=== PATIENT | female | born 1995 | race Asian ===

== ENCOUNTER 2017-10-10 01:52 | Inpatient (IN) | payer OTHER ==
[2017-10-10] VITALS (11 sets, daily range): BP systolic 100–131; BP diastolic 59–85; PULSE 93–106; TEMP 36.7–37.5; O2SAT 96–100; Ht 162.6 cm; Wt 59.1 kg
[~2017-10-10] VITALS: Ht 162.6 cm; Wt 59.1 kg
[~2017-10-10 01:52] MED LIST: [UNRECOGNIZED DRUG - REMARK] PO
[2017-10-10] MEDS ORDERED: KETOROLAC TROMETHAMINE 30 MG/ML VIAL IV STA (02:53)
[2017-10-10 03:22] LABS: ALT/SGPT 22 U/L (12-78); AST/SGOT 17 U/L (15-37); BLOOD UREA NITROGEN 7 mg/dl (7-18); BUN/CREATININE RATIO 12.5 (10-20); CALCIUM 8.3 mg/dl (8.5-10.1); CARBON DIOXIDE 27 mmol/L (21-32); CHLORIDE 103 mmol/L (98-107); CREATININE 0.59 mg/dl (0.60-1.20); GLUCOSE 101 mg/dl (70-99); POTASSIUM 3.4 mmol/L (3.5-5.1); SODIUM 134 mmol/L (136-145)
[2017-10-10 03:24] LABS: ALKALINE PHOSPHATASE 56 U/L (45-117)
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
[2017-10-10 03:35] LABS: COMPLETE YES; HEMATOCRIT 20.7 % (37-47); LYMPH ABS # 0.64 K/uL (1.2-3.4); MEAN CELL VOLUME 93.2 fL (80-100); MEAN CORPUSCULAR HEMOGLOBIN 33.3 pg (25-34); MEAN CORPUSCULAR HGB CONC 35.7 g/dl (32-36); MONO % 1.2 %; NEUT % 20.8 %; PLATELET COUNT 27 K/uL (130-400); PLT ESTIMATE SIGNIFIC DECREASED; RED BLOOD COUNT 2.22 M/uL (4.2-5.4); SCHISTOCYTES OCCASIONAL; TEAR DROP CELLS 1+; WHITE BLOOD COUNT 0.82 K/uL (4.8-10.8)
[2017-10-10 03:51] LABS: ACETAMINOPHEN < 2 ug/ml (10-30)
[2017-10-10 04:24] LABS: URINE APPEARANCE CLEAR (CLEAR); URINE BILIRUBIN NEG (NEG); URINE COLOR ORANGE; URINE NITRITE NEG (NEG); URINE PH 7.5 (4.5-7.5); URINE SPECIFIC GRAVITY 1.007 (1.000-1.030); UROBILINOGEN POS (NEG)
[2017-10-10 04:30] LABS: MANUAL MICROSCOPIC REQUIRED? NO; REVIEW REQ? NO
[2017-10-10 04:43] LABS: BENZODIAZEPINE, URINE NEG (NEG); COCAINE,URINE NEG (NEG); PHENCYCLIDINE, URINE NEG (NEG)
[2017-10-10] MEDS ORDERED: ALUMINUM/MAGNESIUM/SIMETH (MAALOX MAX) 30 ML UDC PO PRN (04:45)
[2017-10-10] MEDS ORDERED: ONDANSETRON INJ 2 MG/ML 2 ML VIAL IV PRN (04:45)
[2017-10-10] MEDS ORDERED: MAGNESIUM HYDROXIDE SUSP 30 ML UDC PO PRN (04:45)
[2017-10-10] MEDS ORDERED: POLYETHYLENE (MIRALAX) 17 GM PACK PO PRN (04:45)
[2017-10-10] MEDS ORDERED: ACETAMINOPHEN 325 MG TAB PO PRN (04:45)
[2017-10-10] MEDS ORDERED: SODIUM CHLORIDE 0.9% 1000ML 1,000 ML IV STA (04:53)
[2017-10-10] MEDS ORDERED: SODIUM CHLORIDE 0.9% 500ML 500 ML IV ONE (05:00)
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
--- NOTE | 2017-10-10 06:59 | DIAGNOSTIC IMAGING REPORT ---
CHEST ONE VIEW PORTABLE CLINICAL HISTORY: 22 years-old Female presenting with inhalant abuse. TECHNIQUE: Portable upright AP view of the chest was obtained. COMPARISON: None. FINDINGS: Cardiomediastinal silhouette normal. Lungs and pleural spaces clear. Osseous structures normal. Upper abdomen normal. IMPRESSION: 1. No acute cardiopulmonary disease. Electronically signed by: Lee Oh M.D. 10/10/2017 6:58 AM Dictated Date/Time: 10/10/2017 6:57 AM
[2017-10-10] MEDS ORDERED: NSS + 20MEQ KCL 1000ML 1,000 ML IV SCH (08:00)
[2017-10-10 08:55] LABS: FERRITIN 349.8 ng/ml (8.0-388.0)
[2017-10-10 09:22] LABS: MEAN CELL VOLUME 94.1 fL (80-100); MEAN CORPUSCULAR HEMOGLOBIN 33.2 pg (25-34); MEAN CORPUSCULAR HGB CONC 35.3 g/dl (32-36); PLATELET COUNT 19 K/uL (130-400); RED BLOOD COUNT 2.02 M/uL (4.2-5.4); WHITE BLOOD COUNT 0.93 K/uL (4.8-10.8)
[2017-10-10 09:25] LABS: PLT ESTIMATE SIGNIFIC DECREASED
[2017-10-10] MEDS: CYANOCOBALAMIN 1000 MCG/ML VIAL IM SCH (11:26)
[2017-10-10 14:25] LABS: PLATELET COUNT 15 K/uL (130-400)
[2017-10-10 14:27] LABS: BLOOD UREA NITROGEN 6 mg/dl (7-18); BUN/CREATININE RATIO 13.7 (10-20); CALCIUM 7.9 mg/dl (8.5-10.1); CARBON DIOXIDE 26 mmol/L (21-32); CHLORIDE 106 mmol/L (98-107); CREATININE 0.46 mg/dl (0.60-1.20); GLUCOSE 92 mg/dl (70-99); POTASSIUM 3.2 mmol/L (3.5-5.1); SODIUM 136 mmol/L (136-145)
--- NOTE | 2017-10-10 14:41 | Family Medicine Progress Note ---
Progress Note Date of Service Oct 10, 2017. Subjective Pt evaluation today including: conversation w/ patient, physical exam, chart review, lab review, review of studies Pain: No pain reported this morning Voiding: no voiding problems, no incontinence Patient is resting comfortably in bed this morning with no acute complaints. She states she has been having persistent numbness and tingling in her hands and feet since yesterday. She states that she initially started huffing 2 years ago for approximately 2 months, and then quit and year of the half ago when she has since restarted in doing it daily. She says she huffs around 200 canisters per day. She denies any shortness of breath at this time. She denies any confusion or difficulty concentrating. She denies any recent seizures or headaches. 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 She has had no issues with sleep. Constitutional: No fever, No chills, No sweats, No fatigue Respiratory: No cough, No sputum, No wheezing, No shortness of breath, No dyspnea on exertion, No dyspnea at rest Cardiovascular: No chest pain, No palpitations Abdomen: No pain, No nausea, No vomiting, No diarrhea, No constipation Musculoskeletal: No joint pain Female : No dysuria Neurologic: + numbness/tingling, No paralysis, No weakness Endo: No fatigue Medications Current Inpatient Medications Medications (Trade) Dose Ordered Sig/Lance Route Start Time Stop Time Status Last Admin Dose Admin Acetaminophen (Tylenol Tab) 650 mg Q4H PRN PO 10/10/17 04:45 11/09/17 04:44 Al Hydrox/Mg Hydrox/Simethicone (Maalox Max Susp) 15 ml Q4H PRN PO 10/10/17 04:45 11/09/17 04:44 Magnesium Hydroxide (Milk Of Magnesia Susp) 30 ml Q12H PRN PO 10/10/17 04:45 11/09/17 04:44 Ondansetron HCl (Zofran Inj) 4 mg Q6H PRN IV 10/10/17 04:45 11/09/17 04:44 Polyethylene (Miralax Powder Packet) 17 gm DAILY PRN PO 10/10/17 04:45 11/09/17 04:44 Cyanocobalamin (Vitamin B-12 Inj) 1,000 mcg DAILY IM 10/10/17 09:00 11/09/17 08:59 10/10/17 11:26 1,000 MCG Cyanocobalamin (Vitamin B-12 Tab) 500 mcg QAM PO 10/11/17 09:00 11/10/17 08:59 Ketorolac Tromethamine (Toradol Inj) 15 mg Q6H PRN IV 10/10/17 15:45 10/15/17 15:44 Objective Vital Signs Date Time Temp Pulse Resp B/P (MAP) Pulse Ox O2 Delivery O2 Flow Rate FiO2 10/10/17 17:30 36.7 99 16 120/72 99 10/10/17 17:15 37.5 106 18 106/70 97 10/10/17 16:59 37.3 100 16 123/59 97 10/10/17 16:00 Room Air 10/10/17 12:06 37.2 98 16 108/75 (86) 96 Room Air 10/10/17 12:00 Room Air 10/10/17 08:00 37.3 96 16 117/75 (89) 99 Room Air Nasal Cannula Ambu-Bag 10/10/17 08:00 Room Air 10/10/17 07:45 100 Room Air 10/10/17 07:41 36.9 108 18 110/60 100 10/10/17 07:31 110/60 10/10/17 07:15 108 18 100 10/10/17 07:01 123/94 10/10/17 06:52 123/70 10/10/17 06:45 113 18 100 10/10/17 06:40 116 22 99/89 100 Room Air 10/10/17 04:42 99 Room Air 10/10/17 04:31 117/87 10/10/17 01:58 36.9 116 18 92/63 99 Room Air Physical Exam General Appearance: WD/WN, no apparent distress Eyes: normal inspection, sclerae normal ENT: + pertinent finding (Scabbing at the base of the nose) Neck: supple, no carotid bruits Respiratory/Chest: chest non-tender, lungs clear, normal breath sounds Cardiovascular: regular rate, rhythm, no edema, no gallop Abdomen: normal bowel sounds, non tender, soft Extremities: no pedal edema, no calf tenderness Neurologic/Psychiatric: fire watcher II-XII nml as tested, no motor/sensory deficits, alert, oriented x 3 Skin: normal color Laboratory Results Current Inpatient Medications Medications (Trade) Dose Ordered Sig/Lance Route Start Time Stop Time Status Last Admin Dose Admin Acetaminophen (Tylenol Tab) 650 mg Q4H PRN PO 10/10/17 04:45 11/09/17 04:44 Al Hydrox/Mg Hydrox/Simethicone (Maalox Max Susp) 15 ml Q4H PRN PO 10/10/17 04:45 11/09/17 04:44 Magnesium Hydroxide (Milk Of Magnesia Susp) 30 ml Q12H PRN PO 10/10/17 04:45 11/09/17 04:44 Ondansetron HCl (Zofran Inj) 4 mg Q6H PRN IV 10/10/17 04:45 11/09/17 04:44 Polyethylene (Miralax Powder Packet) 17 gm DAILY PRN PO 10/10/17 04:45 11/09/17 04:44 Cyanocobalamin (Vitamin B-12 Inj) 1,000 mcg DAILY IM 10/10/17 09:00 11/09/17 08:59 10/10/17 11:26 1,000 MCG Cyanocobalamin (Vitamin B-12 Tab) 500 mcg QAM PO 10/11/17 09:00 11/10/17 08:59 Ketorolac Tromethamine (Toradol Inj) 15 mg Q6H PRN IV 10/10/17 15:45 10/15/17 15:44 Assessment and Plan The patient is a 22-year-old female with no known past medical history that presents with B12 deficiency, pancytopenia , and 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 1) Pancytopenia secondary to B12 deficiency - B12 level of 154 - B12 deficiency in setting of Nitrous Oxide inhalation has been documented although mechanism is poorly understood - 1000 mcg IV Cyanocobalamin Daily - 500mcg IV Cyanocobalamin this morning - Transfuse 1 unit of PRBC due to Hgb of of 6.5 (3 more units on hold) - Platelet level of 15 --> If drop below 10 will require platelet transfusion - Daily CBC - Heme/Onc Consulted - Bone Marrow Biopsy performed - Neutropenic Precautions 2) Chronic Nitrous Oxide Inhalation - Patient states she has not used for 4 days - Continue to monitor for possible withdrawal symptoms - Denies any anxiety, palpitations, fever - Will require further counselling regarding cessation 3) Hypokalemia - K+ 3.4 - IV NS + 20 mEq KCL @ 125ml/hr - Repeat BMP daily 4) DVT Prophylaxis - SCD - TEDs 5) Code Status - Full Resuscitation 6) Disposition - Transferred to Med/ Surg Resident Physician Supervision Note: I interviewed and examined the patient. Discussed with Dr. Hermosillo and agree with findings and plan as documented in the note. Any exceptions or clarifications are listed here: None Documented By: Jez Fatima hands still hurt no other complaints vitals noted nad breathing unlabored no pallor or icterus severe b12 deficiency - both absolute and functional - from nitrous inhalations - resulting in hand/feet neuropathy and severe pancytopenia -hematology recommends transfusion - nothing that while counts are already low, she's likely to worsen before she improves. -neutropenic precautions -B12 supplementation aggressively -follow counts -whippet cessation counselling provided -safe for med surg -discussed with pt first in latvian, then once again through mandarin correctional agency director. pt expressed understanding of her situation Resident Tracking Resident Involvement: Resident Care Provided Care Provided: Adult Hospital Medicine
[2017-10-10 14:44] LABS: HEMATOCRIT 17.6 % (37-47); MEAN CELL VOLUME 93.6 fL (80-100); MEAN CORPUSCULAR HEMOGLOBIN 34.6 pg (25-34); MEAN CORPUSCULAR HGB CONC 36.9 g/dl (32-36); RED BLOOD COUNT 1.88 M/uL (4.2-5.4); WHITE BLOOD COUNT 0.73 K/uL (4.8-10.8)
[2017-10-10 14:45] LABS: PLT ESTIMATE SIGNIFIC DECREASED
[2017-10-10] MEDS ORDERED: KETOROLAC TROMETHAMINE 15 MG/ML VIAL ONE (15:32)
--- NOTE | 2017-10-10 16:53 | Oncology Consultation ---
Oncology/Heme Consultation Date of Consultation: Oct 10, 2017. Attending Physician: Jez Fatima D.O. Reason for Consultation: Pancytopenia History of Present Illness Ms. Barahona is a 22 year old Mandarin-speaking woman. I used a video-interpreter and translator during our visit. She presented to [facility] ED last night with bilateral hand and foot numbness and pain that had progressed for a few weeks. She also felt tired and weak. In the ER, she was noted to be profoundly pancytopenic and so was admitted. During her social history, it was revealed that she regularly inhales nitrous oxide as a drug of abuse, sometimes as many as 200 canisters per day. She has been doing this for some time. She denies any fevers, weight loss, lymphadenopathy, bleeding, petechiae, infectious symptoms, or pain. 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) Allergies Coded Allergies: No Known Allergies (Unverified , 10/10/17) Home Medications Scheduled [Kyrgyz Antibiotic], 1 CAP PO DAILY Current Inpatient Medications Current Inpatient Medications Medications (Trade) Dose Ordered Sig/Lance Route Start Time Stop Time Status Last Admin Dose Admin Acetaminophen (Tylenol Tab) 650 mg Q4H PRN PO 10/10/17 04:45 11/09/17 04:44 Al Hydrox/Mg Hydrox/Simethicone (Maalox Max Susp) 15 ml Q4H PRN PO 10/10/17 04:45 11/09/17 04:44 Magnesium Hydroxide (Milk Of Magnesia Susp) 30 ml Q12H PRN PO 10/10/17 04:45 11/09/17 04:44 Ondansetron HCl (Zofran Inj) 4 mg Q6H PRN IV 10/10/17 04:45 11/09/17 04:44 Polyethylene (Miralax Powder Packet) 17 gm DAILY PRN PO 10/10/17 04:45 11/09/17 04:44 Potassium Chloride/Sodium Chloride 1,000 ml @ 100 mls/hr Q10H IV 10/10/17 08:00 11/09/17 07:59 10/10/17 11:25 100 MLS/HR Cyanocobalamin (Vitamin B-12 Inj) 1,000 mcg DAILY IM 10/10/17 09:00 11/09/17 08:59 10/10/17 11:26 1,000 MCG Cyanocobalamin (Vitamin B-12 Tab) 500 mcg QAM PO 10/11/17 09:00 11/10/17 08:59 Ketorolac Tromethamine (Toradol Inj) 15 mg Q6H PRN IV 10/10/17 15:45 10/15/17 15:44 Review of Systems Constitutional: + fatigue, No fever, No sweats ENT: No unusual epistaxis Respiratory: No shortness of breath, No hemoptysis Cardiovascular: No chest pain Abdomen: No pain, No nausea, No GI bleeding Genitourinary - Female: No dysuria, No hematuria Neurologic: + numbness/tingling Hematologic / Lymphatic: No abnormal bleeding/bruising Physical Exam Date Time Temp Pulse Resp B/P (MAP) Pulse Ox O2 Delivery O2 Flow Rate FiO2 10/10/17 16:00 Room Air 10/10/17 12:06 37.2 98 16 108/75 (86) 96 Room Air 10/10/17 12:00 Room Air 10/10/17 08:00 37.3 96 16 117/75 (89) 99 Room Air Nasal Cannula Ambu-Bag 10/10/17 08:00 Room Air 10/10/17 07:45 100 Room Air 10/10/17 07:41 36.9 108 18 110/60 100 10/10/17 07:31 110/60 10/10/17 07:15 108 18 100 10/10/17 07:01 123/94 10/10/17 06:52 123/70 10/10/17 06:45 113 18 100 10/10/17 06:40 116 22 99/89 100 Room Air 10/10/17 04:42 99 Room Air 10/10/17 04:31 117/87 10/10/17 01:58 36.9 116 18 92/63 99 Room Air General Appearance: WD/WN, no apparent distress Eyes: EOMI ENT: pharynx normal (no bleeding or purpura) Neck: no adenopathy Respiratory/Chest: lungs clear Cardiovascular: regular rate, rhythm Abdomen/GI: non tender, soft Extremities/Musculoskelatal: no pedal edema Neurologic/Psych: no motor/sensory deficits, alert Skin: no rash Lymphatic: no adenopathy Laboratory Results Last 24 Hours Test 10/10/17 02:45 10/10/17 03:45 10/10/17 04:33 10/10/17 08:17 White Blood Count 0.82 K/uL 0.93 K/uL Red Blood Count 2.22 M/uL 2.02 M/uL Hemoglobin 7.4 g/dL 6.7 g/dL Hematocrit 20.7 % 19.0 % Mean Corpuscular Volume 93.2 fL 94.1 fL Mean Corpuscular Hemoglobin 33.3 pg 33.2 pg Mean Corpuscular Hemoglobin Concent 35.7 g/dl 35.3 g/dl Platelet Count 27 K/uL 19 K/uL Neutrophils (%) (Auto) 20.8 % Lymphocytes (%) (Auto) 78.0 % Monocytes (%) (Auto) 1.2 % Eosinophils (%) (Auto) 0.0 % Basophils (%) (Auto) 0.0 % Neutrophils # (Auto) 0.17 K/uL Lymphocytes # (Auto) 0.64 K/uL Monocytes # (Auto) 0.01 K/uL Eosinophils # (Auto) 0.00 K/uL Basophils # (Auto) 0.00 K/uL RDW Standard Deviation 66.4 fL 65.5 fL RDW Coefficient of Variation 19.7 % 19.4 % Immature Granulocyte % (Auto) 0.0 % Immature Granulocyte # (Auto) 0.00 K/uL Nucleated RBC Absolute Count (auto) 0.03 K/uL Nucleated Red Blood Cells % 3.2 % Platelet Estimate SIGNIFIC DECREASED SIGNIFIC DECREASED Tear Drop Cells 1+ Schistocytes OCCASIONAL Peripheral Blood Smear Path Consult Sodium Level 134 mmol/L Potassium Level 3.4 mmol/L Chloride Level 103 mmol/L Carbon Dioxide Level 27 mmol/L Anion Gap 4.0 mmol/L Blood Urea Nitrogen 7 mg/dl Creatinine 0.59 mg/dl Estimated GFR () > 150.0 Estimated GFR (Non- 131.0 BUN/Creatinine Ratio 12.5 Random Glucose 101 mg/dl Calcium Level 8.3 mg/dl Iron Level 23 mcg/dl Total Iron Binding Capacity 250 mcg/dl Transferrin 189 mg/dl Transferrin % Saturation 9 % Ferritin 349.8 ng/ml Total Bilirubin 2.2 mg/dl Direct Bilirubin 0.4 mg/dl Aspartate Amino Transf (AST/SGOT) 17 U/L Alanine Aminotransferase (ALT/SGPT) 22 U/L Alkaline Phosphatase 56 U/L Total Protein 7.6 gm/dl Albumin 3.8 gm/dl Salicylates Level < 1.7 mg/dl Acetaminophen Level < 2 ug/ml Urine Color ORANGE Urine Appearance CLEAR Urine pH 7.5 Urine Specific [place] 1.007 Urine Protein NEG Urine Glucose (UA) NEG Urine Ketones NEG Urine Occult Blood 3+ Urine Nitrite NEG Urine Bilirubin NEG Urine Urobilinogen POS Urine Leukocyte Esterase TRACE Urine WBC (Auto) 1-5 /hpf Urine RBC (Auto) 0-4 /hpf Urine Hyaline Casts (Auto) 0 /lpf Urine Epithelial Cells (Auto) 10-20 /lpf Urine Bacteria (Auto) NEG Urine Test NEG Urine Opiates Screen NEG Urine Methadone, Qualitative NEG Urine Barbiturates NEG Urine Phencyclidine (PCP) Level NEG Ur Amphetamine/Methamphetamine NEG MDMA (Ecstasy) Screen NEG Urine Benzodiazepines Screen NEG Urine Cocaine Metabolite NEG Urine Marijuana (THC) NEG Vitamin B12 Level 154 pg/mL Folate 17.62 ng/mL Test 10/10/17 13:48 White Blood Count 0.73 K/uL Red Blood Count 1.88 M/uL Hemoglobin 6.5 g/dL Hematocrit 17.6 % Mean Corpuscular Volume 93.6 fL Mean Corpuscular Hemoglobin 34.6 pg Mean Corpuscular Hemoglobin Concent 36.9 g/dl RDW Standard Deviation 66.2 fL RDW Coefficient of Variation 19.6 % Platelet Count 15 K/uL Nucleated RBC Absolute Count (auto) 0.04 K/uL Nucleated Red Blood Cells % 5.8 % Platelet Estimate SIGNIFIC DECREASED Absolute Reticulocyte Count 0.02 10^6/uL Percent Reticulocyte Count 1.2 % Sodium Level 136 mmol/L Potassium Level 3.2 mmol/L Chloride Level 106 mmol/L Carbon Dioxide Level 26 mmol/L Anion Gap 4.0 mmol/L Blood Urea Nitrogen 6 mg/dl Creatinine 0.46 mg/dl Est Creatinine Clear Calc Drug Dose 167.2 ml/min Estimated GFR () > 150.0 Estimated GFR (Non- 142.2 BUN/Creatinine Ratio 13.7 Random Glucose 92 mg/dl Calcium Level 7.9 mg/dl Assessment & Plan Ms. Barahona presents with profound pancytopenia. I reviewed her peripheral smear and noted hypersegmented polymorphonuclear cells, but no blasts or other immature forms. Her vitamin B12 level is low at 150. She also has an unconjugated hyperbilirubinemia, consistent with ineffective hematopoiesis. She has peripheral neuropathy in her hands and feet as well. Although she is not macrocytic, her other features are very consistent with B12 deficiency. As it turns out, nitrous oxide irreversibly inactivates vitamin B12 and is the likely culprit in her case. There are multiple case reports of megaloblastic anemia and agranulocytosis from prolonged exposure to nitrous oxide. The half life in the serum of NO is very short, so it is difficult to test for. However, the marrow toxic effects can be prolonged. She has started IM vitamin B12 injections. I think we should obtain a bone marrow biopsy to confirm the diagnosis and rule out more concerning explanations, like aplastic anemia or acute leukemia, though I highly doubt these diagnoses.
--- NOTE | 2017-10-10 16:58 | Procedure Note ---
Procedure Note Procedure Date Oct 10, 2017. Procedure Description Procedure Name: Right posterior iliac crest bone marrow aspirate and biopsy Procedure time out: side/site verified, patient ID confirmed, correct procedure Consent obtained: verbal (Consent was obtained using a remote [employer] professor of kinesiology. We did not have access to a consent form in Mandarin, so we did not have her sign a paper consent. ) Performed by: attending (Dr. Torin Nichols) Indications: diagnostic Description: The patient was placed in the prone position and draped in the usual fashion. 1 % lidocaine was used for local anesthesia and the patient was given a dose of IV toradol for analgesia. The right posterior iliac crest was palpated and sterilized. A standard bone marrow aspirate needle was inserted and the marrow cavity was entered. A sample of liquid marrow revealed adequate spicules. 5 cc of liquid marrow was removed and sent for flow cytometry and FISH for leukemia. The aspirate needle was removed and a Jamshidi core biopsy needle was introduced through the same site. An adequate core biopsy sample was obtained after 2 attempts. Minor bleeding occurred but adequate hemostasis was achieved with pressure. Complications: other (minor bleeding) Patient tolerated procedure: well Post-procedure vital signs: reviewed and stable
[2017-10-11] MEDS: KETOROLAC TROMETHAMINE 15 MG/ML VIAL IV PRN (06:02)
--- NOTE | 2017-10-11 07:02 | Family Medicine Progress Note ---
Progress Note Date of Service Oct 11, 2017. Subjective Pt evaluation today including: conversation w/ patient, physical exam, chart review, lab review, review of studies, conversation w/ windows consultant, review of inpatient medication list Patient well, denies acute overnight events. States ongoing numbness and tingling in hands and feet bilaterally, not extending beyond the proximal forearms or ankles. Not painful. Otherwise denies headaches, palpitations, heart racing, chest pain, dyspnea, vision changes. She is tolerating diet without nausea or vomiting. She has been voiding without issue. She has not had a bowel movement yet but denies constipation. She has not ambulated significantly, but denies balance issues walking to and from the washroom. She has commenced menses, but otherwise denies blood loss - epistaxis or bruising. She does have some anxiety regarding her prognosis, asking "am I going to ." Patient is assured that labs look like they have turned the corner and she is stable and will hopefully continue to improve. All questions were answered to her satisfaction. ROS was unremarkable except as noted above. Objective Vital Signs Date Time Temp Pulse Resp B/P (MAP) Pulse Ox O2 Delivery O2 Flow Rate FiO2 10/11/17 00:05 Room Air 10/10/17 23:01 37.3 95 18 117/81 (93) 98 Room Air 10/10/17 18:30 37.1 98 16 131/85 98 10/10/17 18:00 37.1 96 18 103/73 98 10/10/17 17:50 36.7 93 16 99 10/10/17 17:45 93 16 100/63 99 10/10/17 17:30 36.7 99 16 120/72 99 10/10/17 17:15 37.5 106 18 106/70 97 10/10/17 16:59 37.3 100 16 123/59 97 10/10/17 16:00 Room Air 10/10/17 12:06 37.2 98 16 108/75 (86) 96 Room Air 10/10/17 12:00 Room Air 10/10/17 08:00 37.3 96 16 117/75 (89) 99 Room Air Nasal Cannula Ambu-Bag 10/10/17 08:00 Room Air 10/10/17 07:45 100 Room Air 10/10/17 07:41 36.9 108 18 110/60 100 10/10/17 07:31 110/60 10/10/17 07:15 108 18 100 Physical Exam General Appearance: WD/WN, no apparent distress Eyes: normal inspection, PERRL, EOMI ENT: hearing grossly normal, pharynx normal Neck: supple, no adenopathy, thyroid normal, + pertinent finding Respiratory/Chest: lungs clear, normal breath sounds, no respiratory distress, no accessory muscle use Cardiovascular: regular rate, rhythm, no edema, no gallop, no murmur Abdomen: normal bowel sounds, non tender, soft Extremities: non-tender, normal inspection, no pedal edema, no calf tenderness Neurologic/Psychiatric: hospital cook II-XII nml as tested, no motor/sensory deficits, alert, normal mood/affect, oriented x 3 Skin: normal color, warm/dry, no rash, + pertinent finding (Healing blister on left hand from previous trauma) Laboratory Results Results Past 24 Hours Test 10/10/17 13:48 10/11/17 07:41 Range/Units White Blood Count 0.73 1.22 4.8-10.8 K/uL Red Blood Count 1.88 2.45 4.2-5.4 M/uL Hemoglobin 6.5 7.9 12.0-16.0 g/dL Hematocrit 17.6 22.2 37-47 % Mean Corpuscular Volume 93.6 90.6 80-100 fL Mean Corpuscular Hemoglobin 34.6 32.2 25-34 pg Mean Corpuscular Hemoglobin Concent 36.9 35.6 32-36 g/dl RDW Standard Deviation 66.2 61.8 36.4-46.3 fL RDW Coefficient of Variation 19.6 19.0 11.5-14.5 % Platelet Count 15 12 130-400 K/uL Nucleated RBC Absolute Count (auto) 0.04 0.12 0-0 K/uL Nucleated Red Blood Cells % 5.8 9.4 % Platelet Estimate SIGNIFIC DECREASED Absolute Reticulocyte Count 0.02 0.02-0.10 10^6/uL Percent Reticulocyte Count 1.2 0.5-2.0 % Sodium Level 136 138 136-145 mmol/L Potassium Level 3.2 3.1 3.5-5.1 mmol/L Chloride Level 106 105 98-107 mmol/L Carbon Dioxide Level 26 24 21-32 mmol/L Anion Gap 4.0 9.0 3-11 mmol/L Blood Urea Nitrogen 6 9 7-18 mg/dl Creatinine 0.46 0.49 0.60-1.20 mg/dl Est Creatinine Clear Calc Drug Dose 167.2 156.9 ml/min Estimated GFR () > 150.0 > 150.0 Estimated GFR (Non- 142.2 139.3 BUN/Creatinine Ratio 13.7 17.7 10-20 Random Glucose 92 83 70-99 mg/dl Calcium Level 7.9 8.3 8.5-10.1 mg/dl Total Bilirubin 2.0 0.2-1 mg/dl Aspartate Amino Transf (AST/SGOT) 20 15-37 U/L Alanine Aminotransferase (ALT/SGPT) 18 12-78 U/L Alkaline Phosphatase 53 45-117 U/L Total Protein 6.9 6.4-8.2 gm/dl Albumin 3.4 3.4-5.0 gm/dl Globulin 3.5 2.5-4.0 gm/dl Albumin/Globulin Ratio 1.0 0.9-2 Assessment and Plan The patient is a 22-year-old female with no known past medical history that presents with B12 deficiency, pancytopenia, and 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 B12 deficiency B12 level severely low at 154, deficiency likely in setting of nitrous oxide inhalation has been documented although mechanism is poorly understood - Continue IM cyanocobalamin 1000 mcg daily - Continue PO cyanocobalamin 500mcg this daily - Plans for aggressive B12 supplementation: IM daily x 1 week, IM weekly x 3 weeks, IM monthly x 2 months, with vitamin level check subsequently to determine further management Pancytopenia -almost certainly related to poor marrow production from near-absence of B12 ( low level, and question her ability to even utilize the B12 she has given the possibility of nitrous inactivating this as well) Heme/Onc Consulted s/p transfusion of 1 unit of PRBC due to Hgb of of 6.5 (10/10/17) - 3 more units on hold hemoglobin improved subsequently, white cell count improving spontaneously, platelets remain low - Repeat CBC this afternoon to monitor platelets - plans to transfuse if platelets drop below 10 - Bone marrow biopsy performed - analysis pending - Daily CBC - Neutropenic Precautions peripheral neuropathy -as manifest by hand/feet burning. replace B12, supportive care, time Chronic nitrous oxide inhalation Counselling provided regarding cessation. Patient states she has not used for 5 days, and understands that ongoing use could be fatal - Continue to monitor for possible withdrawal symptoms, although this is unlikely - this appears to be the root cause of all of above due to nitrous showing ability to inhibit B12 absorption as well as utilization -she's aware of all of this and appears motivated to not use again Hypokalemia - K+ 3.1 - Supplemented with KCl 20mEq BID x 1 day - Trend BMP DVT Prophylaxis - SCD - TEDs Code Status - Full Resuscitation Resident Physician Supervision Note: I interviewed and examined the patient. Discussed with Dr. Kent and agree with findings and plan as documented in the note. Any exceptions or clarifications are listed here: None Documented By: Jez Akua feeling ok except hands still about the same. asks repeatedly if she's going to . discussed again and mulitple times in regards to dx's and plans as well as favorable prognosis. she expressed understanding d/w heme/onc input appreciated vitals noted anxious but nad breathing unlabored no pallor or icterus huffing related complications - improving, as above. no further huffing. Continued [facility] stay due to: other (neutropenic and severely thrombocytopenic) Discharge planning: home Resident Tracking Resident Involvement: Resident Care Provided Care Provided: Adult Hospital Medicine
[2017-10-11 07:44] VITALS: BP 103/72; PULSE 87; TEMP 36.8; O2SAT 100
[2017-10-11 08:00] VITALS: O2SAT 100
[2017-10-11 08:28] LABS: HEMATOCRIT 22.2 % (37-47); MEAN CELL VOLUME 90.6 fL (80-100); MEAN CORPUSCULAR HEMOGLOBIN 32.2 pg (25-34); MEAN CORPUSCULAR HGB CONC 35.6 g/dl (32-36); PLATELET COUNT 12 K/uL (130-400); RED BLOOD COUNT 2.45 M/uL (4.2-5.4); WHITE BLOOD COUNT 1.22 K/uL (4.8-10.8)
[2017-10-11] MEDS: CYANOCOBALAMIN 500 MCG TAB (VIT B-12) PO SCH (08:37)
[2017-10-11] MEDS: CYANOCOBALAMIN 1000 MCG/ML VIAL IM SCH (08:38)
[2017-10-11 08:57] LABS: ALT/SGPT 18 U/L (12-78); BLOOD UREA NITROGEN 9 mg/dl (7-18); BUN/CREATININE RATIO 17.7 (10-20); CALCIUM 8.3 mg/dl (8.5-10.1); CARBON DIOXIDE 24 mmol/L (21-32); CHLORIDE 105 mmol/L (98-107); CREATININE 0.49 mg/dl (0.60-1.20); GLUCOSE 83 mg/dl (70-99); POTASSIUM 3.1 mmol/L (3.5-5.1); SODIUM 138 mmol/L (136-145)
[2017-10-11 09:00] LABS: ALKALINE PHOSPHATASE 53 U/L (45-117); AST/SGOT 20 U/L (15-37)
[2017-10-11] MEDS ORDERED: POTASSIUM CHLORIDE 20 MEQ TABCR PO ONE (09:30)
--- NOTE | 2017-10-11 12:37 | Hematology/Oncology Prog Note ---
Hematology/Onc Progress Note Date of Service Oct 11, 2017. Diagnoses Pancytopenia secondary to B12 deficiency Medications Medications Administered Medications (Trade) Dose Ordered Sig/Lance Route Start Time Stop Time Status Last Admin Dose Admin Ketorolac Tromethamine (Toradol Inj) 30 mg NOW STAT IV 10/10/17 02:53 10/10/17 02:54 DC 10/10/17 03:09 30 MG Potassium Chloride/Sodium Chloride 1,000 ml @ 100 mls/hr Q10H IV 10/10/17 08:00 10/10/17 17:34 DC 10/10/17 11:25 100 MLS/HR Sodium Chloride 1,000 ml @ 250 mls/hr Q4H STAT IV 10/10/17 04:53 10/10/17 07:54 DC 10/10/17 04:58 250 MLS/HR Cyanocobalamin (Vitamin B-12 Inj) 1,000 mcg DAILY IM 10/10/17 09:00 11/09/17 08:59 10/11/17 08:38 1,000 MCG Cyanocobalamin (Vitamin B-12 Tab) 500 mcg QAM PO 10/11/17 08:00 11/10/17 08:59 10/11/17 08:37 500 MCG Ketorolac Tromethamine (Toradol Inj) 15 mg STK-MED ONCE .ROUTE 10/10/17 15:32 10/10/17 15:33 DC 10/10/17 15:36 15 MG Ketorolac Tromethamine (Toradol Inj) 15 mg Q6H PRN IV 10/10/17 15:45 10/15/17 15:44 10/11/17 06:02 15 MG Potassium Chloride (Klor-Con Tab) 20 meq 0930 ONCE PO 10/11/17 09:30 10/11/17 09:32 DC 10/11/17 10:26 20 MEQ Subjective Ms. Barahona is comfortable in bed. She continues to have pain in her hands and feet and is very worried about whether they will get better. Vital Signs Vital Signs Past 12 Hours Date Time Temp Pulse Resp B/P (MAP) Pulse Ox O2 Delivery O2 Flow Rate FiO2 10/11/17 08:00 100 Room Air 10/11/17 07:44 36.8 87 15 103/72 (82) 100 Room Air Physical Exam Constitutional: General Apperance: heathly-appearing Level of Distress: NAD ENMT: pharynx normal (no bleeding) Lungs: Respiratory Effort: no dyspnea Auscuitation: breath sounds normal Cardiovascular: Heart Auscultation: RRR Abdomen: Inspection & Palpation: soft, non-distended Extremities: no edema Laboratory Last 24 Hours Test 10/10/17 13:48 10/11/17 07:41 White Blood Count 0.73 K/uL 1.22 K/uL Red Blood Count 1.88 M/uL 2.45 M/uL Hemoglobin 6.5 g/dL 7.9 g/dL Hematocrit 17.6 % 22.2 % Mean Corpuscular Volume 93.6 fL 90.6 fL Mean Corpuscular Hemoglobin 34.6 pg 32.2 pg Mean Corpuscular Hemoglobin Concent 36.9 g/dl 35.6 g/dl RDW Standard Deviation 66.2 fL 61.8 fL RDW Coefficient of Variation 19.6 % 19.0 % Platelet Count 15 K/uL 12 K/uL Nucleated RBC Absolute Count (auto) 0.04 K/uL 0.12 K/uL Nucleated Red Blood Cells % 5.8 % 9.4 % Platelet Estimate SIGNIFIC DECREASED Absolute Reticulocyte Count 0.02 10^6/uL Percent Reticulocyte Count 1.2 % Sodium Level 136 mmol/L 138 mmol/L Potassium Level 3.2 mmol/L 3.1 mmol/L Chloride Level 106 mmol/L 105 mmol/L Carbon Dioxide Level 26 mmol/L 24 mmol/L Anion Gap 4.0 mmol/L 9.0 mmol/L Blood Urea Nitrogen 6 mg/dl 9 mg/dl Creatinine 0.46 mg/dl 0.49 mg/dl Est Creatinine Clear Calc Drug Dose 167.2 ml/min 156.9 ml/min Estimated GFR () > 150.0 > 150.0 Estimated GFR (Non- 142.2 139.3 BUN/Creatinine Ratio 13.7 17.7 Random Glucose 92 mg/dl 83 mg/dl Calcium Level 7.9 mg/dl 8.3 mg/dl Total Bilirubin 2.0 mg/dl Aspartate Amino Transf (AST/SGOT) 20 U/L Alanine Aminotransferase (ALT/SGPT) 18 U/L Alkaline Phosphatase 53 U/L Total Protein 6.9 gm/dl Albumin 3.4 gm/dl Globulin 3.5 gm/dl Albumin/Globulin Ratio 1.0 Assessment & Plan I spoke with Dr. Mazariegos from pathology last evening. 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 A complete review should be available early next week. In the meantime, her counts are improving since starting IM vitamin B12 injections, strongly supporting the presumptive diagnosis. Her platelets remain low, but these are usually the last cells to recover in marrow failure states. She is not bleeding , so I would not transfuse her unless her platelet count falls <10K. If her counts continue to improve and her platelet count rises above 20-30K, she should be able to go home with outpatient B12 injections. Her sensory neuropathy should also improve in time, but this could take months or longer and may not recover 100%.
[2017-10-11 14:37] VITALS: BP 111/74; PULSE 84; TEMP 37.3; O2SAT 98
[2017-10-11 15:46] LABS: HEMATOCRIT 22.8 % (37-47); MEAN CELL VOLUME 91.2 fL (80-100); MEAN CORPUSCULAR HEMOGLOBIN 31.2 pg (25-34); MEAN CORPUSCULAR HGB CONC 34.2 g/dl (32-36); PLATELET COUNT 13 K/uL (130-400); PLT ESTIMATE SIGNIFIC DECREASED; WHITE BLOOD COUNT 1.06 K/uL (4.8-10.8)
[2017-10-11] MEDS: POTASSIUM CHLORIDE 20 MEQ TABCR PO SCH (19:52)
[2017-10-11 22:41] VITALS: BP 111/71; PULSE 104; TEMP 37.2; O2SAT 100
[2017-10-12 07:05] LABS: HEMATOCRIT 22.6 % (37-47); MEAN CELL VOLUME 93.8 fL (80-100); MEAN CORPUSCULAR HEMOGLOBIN 33.6 pg (25-34); MEAN CORPUSCULAR HGB CONC 35.8 g/dl (32-36); RED BLOOD COUNT 2.41 M/uL (4.2-5.4); WHITE BLOOD COUNT 1.49 K/uL (4.8-10.8)
[2017-10-12 07:18] VITALS: BP 91/57; PULSE 87; TEMP 37.1; O2SAT 97
[2017-10-12 07:36] LABS: BLOOD UREA NITROGEN 7 mg/dl (7-18); BUN/CREATININE RATIO 14.6 (10-20); CALCIUM 8.4 mg/dl (8.5-10.1); CARBON DIOXIDE 27 mmol/L (21-32); CHLORIDE 109 mmol/L (98-107); CREATININE 0.51 mg/dl (0.60-1.20); GLUCOSE 86 mg/dl (70-99); POTASSIUM 3.8 mmol/L (3.5-5.1); SODIUM 142 mmol/L (136-145)
[2017-10-12 08:00] VITALS: O2SAT 97
[2017-10-12 08:15] LABS: ANISOCYTOSIS PRESENT; PLT ESTIMATE SIGNIFIC DECREASED; POLYCHROMASIA 2+; TEAR DROP CELLS 1+
[2017-10-12 08:19] LABS: COMPLETE YES; LYMPH ABS # 1.34 K/uL (1.2-3.4); LYMPHOCYTE % 90.1 %; META ABS # 0.01 K/uL (0-0); METAMYELOCYTE % 0.9 %; MYELOCYTE % 2.7 %; NEUTROPHILS % 2.7 %; PLATELET COUNT 17 K/uL (130-400)
[2017-10-12] MEDS: POTASSIUM CHLORIDE 20 MEQ TABCR PO SCH (08:26)
[2017-10-12] MEDS: CYANOCOBALAMIN 500 MCG TAB (VIT B-12) PO SCH (08:26)
[2017-10-12] MEDS: CYANOCOBALAMIN 1000 MCG/ML VIAL IM SCH (08:27)
--- NOTE | 2017-10-12 10:01 | Family Medicine Progress Note ---
Progress Note Date of Service Oct 12, 2017. Subjective Pt evaluation today including: conversation w/ patient, physical exam, chart review, lab review, review of studies, conversation w/ instructional design consultant, review of inpatient medication list Patient well, denies acute overnight events. States ongoing numbness and tingling in hands and feet bilaterally. Not painful. No improvement since yesterday. Otherwise denies headaches, palpitations, heart racing, chest pain, dyspnea, vision changes. She is tolerating diet without nausea or vomiting. She has been voiding without issue. She has not had a bowel movement yet but denies constipation. She is ambulating without balance issues. She denies blood loss other than menses - no epistaxis but she has noted spots on her chest and chin. She does have some anxiety regarding her prognosis, asking "am I going to " and "how long before I am better." Patient is assured that labs look like they have turned the corner and she is stable and will hopefully continue to improve over the next several months. All questions were answered to her satisfaction. ROS was unremarkable except as noted above. Objective Vital Signs Date Time Temp Pulse Resp B/P (MAP) Pulse Ox O2 Delivery O2 Flow Rate FiO2 10/12/17 08:00 97 Room Air 10/12/17 07:18 37.1 87 16 91/57 (68) 97 Room Air 10/12/17 00:05 Room Air 10/11/17 22:41 37.2 104 18 111/71 (84) 100 Room Air 10/11/17 16:10 Room Air 10/11/17 14:37 37.3 84 16 111/74 (86) 98 Physical Exam General Appearance: WD/WN, no apparent distress Eyes: normal inspection ENT: hearing grossly normal Neck: supple, no adenopathy Respiratory/Chest: lungs clear, normal breath sounds, no respiratory distress, no accessory muscle use Cardiovascular: regular rate, rhythm, no murmur Abdomen: normal bowel sounds, non tender, soft Extremities: normal inspection, no pedal edema, no calf tenderness Neurologic/Psychiatric: 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 as tested, no motor/sensory deficits, alert, oriented x 3, + pertinent finding (anxious mood) Skin: normal color, warm/dry, + pertinent finding (petiechial rash on chest, chin, some dispersed on arms) Laboratory Results Results Past 24 Hours Test 10/11/17 14:56 10/12/17 05:38 Range/Units White Blood Count 1.06 1.49 4.8-10.8 K/uL Red Blood Count 2.50 2.41 4.2-5.4 M/uL Hemoglobin 7.8 8.1 12.0-16.0 g/dL Hematocrit 22.8 22.6 37-47 % Mean Corpuscular Volume 91.2 93.8 80-100 fL Mean Corpuscular Hemoglobin 31.2 33.6 25-34 pg Mean Corpuscular Hemoglobin Concent 34.2 35.8 32-36 g/dl RDW Standard Deviation 61.9 64.0 36.4-46.3 fL RDW Coefficient of Variation 18.9 19.1 11.5-14.5 % Platelet Count 13 17 130-400 K/uL Nucleated RBC Absolute Count (auto) 0.11 0.11 0-0 K/uL Nucleated Red Blood Cells % 9.9 7.3 % Platelet Estimate SIGNIFIC DECREASED SIGNIFIC DECREASED Neutrophils % (Manual) 2.7 % Lymphocytes % (Manual) 90.1 % Monocytes % (Manual) 3.6 % Metamyelocytes % 0.9 % Myelocytes % 2.7 % Neutrophils # (Manual) 0.04 1.4-6.5 K/uL Total Absolute Neutrophils 0.04 1.4-6.5 K/uL Lymphocytes # (Manual) 1.34 1.2-3.4 K/uL Total Absolute Lymphocytes 1.34 1.2-3.4 K/uL Monocytes # (Manual) 0.05 0.11-0.59 K/uL Metamyelocytes # 0.01 0-0 K/uL Myelocytes # 0.04 0-0 K/uL Polychromasia 2+ Basophilic Stippling 1+ Anisocytosis PRESENT Tear Drop Cells 1+ Sodium Level 142 136-145 mmol/L Potassium Level 3.8 3.5-5.1 mmol/L Chloride Level 109 98-107 mmol/L Carbon Dioxide Level 27 21-32 mmol/L Anion Gap 6.0 3-11 mmol/L Blood Urea Nitrogen 7 7-18 mg/dl Creatinine 0.51 0.60-1.20 mg/dl Est Creatinine Clear Calc Drug Dose 150.8 ml/min Estimated GFR () > 150.0 Estimated GFR (Non- 137.5 BUN/Creatinine Ratio 14.6 10-20 Random Glucose 86 70-99 mg/dl Calcium Level 8.4 8.5-10.1 mg/dl Assessment and Plan The patient is a 22-year-old female with no known past medical history that presents with B12 deficiency, pancytopenia, and 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 B12 deficiency B12 level severely low at 154, deficiency likely in setting of nitrous oxide inhalation has been documented although mechanism is poorly understood - Continue IM cyanocobalamin 1000 mcg daily - Continue PO cyanocobalamin 500mcg this daily - Plans for aggressive B12 supplementation: IM daily x 1 week, IM weekly x 3 weeks, IM monthly x 2 months, with vitamin level check subsequently to determine further management Pancytopenia -almost certainly related to poor marrow production from near-absence of B12 ( low level, and question her ability to even utilize the B12 she has given the possibility of nitrous inactivating this as well) Heme/Onc Consulted s/p transfusion of 1 unit of PRBC due to Hgb of of 6.5 (10/10/17) - 3 more units on hold hemoglobin improved subsequently, white cell count improving spontaneously, platelets starting to trend up - given likely adequate EPO/TPO/CSF, will likely continue to trend up now that B12 provided - Bone marrow biopsy performed - analysis pending - Daily CBC - plans to transfuse if platelets drop below 10 - Neutropenic Precautions peripheral neuropathy As manifest by hand/feet numbess/tingling - Continue to replace B12, supportive care, time Chronic nitrous oxide inhalation Her condition appears to be the root cause of all of above due to nitrous showing ability to inhibit B12 absorption as well as utilization. Counselling provided regarding cessation. Patient states she has not used for 6 days, and understands that ongoing use could be fatal. She appears motivated to not use again - Continue to monitor for possible withdrawal symptoms, although this is unlikely Hypokalemia - K+ 3.8 today - resolved - Trend BMP DVT Prophylaxis - SCD - TEDs Code Status - Full ResuscitationResident Physician Supervision Note: I interviewed and examined the patient. Discussed with Dr. Kent and agree with findings and plan as documented in the note. Any exceptions or clarifications are listed here: None Documented By: Jez Fatima no new physical complaints. has been asking everyone who takes care of her if she's going to . asks me as well. had asked nursing if her hands were going to have to be amputated. asks me if she'll be able to get nasal surgery in [place] in about 10 days. extensive discussions - found that actually using writing, slow spoken macedonian, and translation software (along with time for processing) allowed for better expression of understanding on her part than even the coiler operator iPad. answered all questions to the best of my ability and to her satisfaction, and left her with a written summary of what we found, what we're treated, and general expected course. she also asked if she could go back to [place] to be treated - i told her frankly that i don't know - because i know what needs to be done to get her better and have the most chances for improvement, but my understanding of the [facility] is quite limited and i would not be able to be sure she would or wouldn't get the needed care. outlined what needed care would be, explained that B12 and follow up labs are quite simple treatment/evaluation, but that we'd want her to be able to confirm that it can be done before risking suboptimal results vitals noted nad breathing unlabored scattered petechiae in increasing pattern, although not unexpected nitrous oxide huffing ---> profound B12 deficiency and likely poor ability to utilize the little b12 she has --> severe pancytopenia and peripheral neuropathy --improving --continue aggressive b12 supplementation --home once ANC reasonable as long as all other counts are trending up (? probably 1-2 days) Continued [facility] stay due to: other (Severe pancytopenia) Discharge planning: home Resident Tracking Resident Involvement: Resident Care Provided Care Provided: Adult Hospital Medicine
[2017-10-12 15:17] VITALS: BP 113/76; PULSE 92; TEMP 36.7; O2SAT 100
[2017-10-12 19:26] VITALS: TEMP 36.7
[2017-10-12] MEDS: KETOROLAC TROMETHAMINE 15 MG/ML VIAL IV PRN (20:05)
[2017-10-13 00:53] VITALS: BP 103/67; PULSE 102; TEMP 36.7; O2SAT 99
[2017-10-13 06:12] LABS: BLOOD UREA NITROGEN 8 mg/dl (7-18); BUN/CREATININE RATIO 15.7 (10-20); CALCIUM 8.4 mg/dl (8.5-10.1); CARBON DIOXIDE 28 mmol/L (21-32); CHLORIDE 108 mmol/L (98-107); CREATININE 0.52 mg/dl (0.60-1.20); GLUCOSE 94 mg/dl (70-99); POTASSIUM 3.8 mmol/L (3.5-5.1); SODIUM 140 mmol/L (136-145)
[2017-10-13 06:15] LABS: HEMATOCRIT 26.1 % (37-47); MEAN CELL VOLUME 97.4 fL (80-100); MEAN CORPUSCULAR HEMOGLOBIN 32.1 pg (25-34); PLATELET COUNT 29 K/uL (130-400); RED BLOOD COUNT 2.68 M/uL (4.2-5.4); WHITE BLOOD COUNT 2.57 K/uL (4.8-10.8)
[2017-10-13 06:58] VITALS: BP 102/66; PULSE 86; TEMP 36.6; O2SAT 99
[2017-10-13 07:31] LABS: ANISOCYTOSIS PRESENT; HYPERSEGMENTED POLYS 1+; PLT ESTIMATE DECREASED; POLYCHROMASIA 1+
[2017-10-13 07:33] LABS: COMPLETE YES; EOSINOPHIL % 1.8 %; LYMPH ABS # 1.94 K/uL (1.2-3.4); LYMPHOCYTE % 75.4 %; META ABS # 0.02 K/uL (0-0); METAMYELOCYTE % 0.9 %; NEUTROPHILS % 2.6 %
[2017-10-13 08:00] VITALS: O2SAT 99
[2017-10-13] MEDS: CYANOCOBALAMIN 500 MCG TAB (VIT B-12) PO SCH (08:51)
[2017-10-13] MEDS: CYANOCOBALAMIN 1000 MCG/ML VIAL IM SCH (08:52)
--- NOTE | 2017-10-13 09:25 | HEME/ONC PROGRESS NOTE ---
DATE: 10/13/2017 DIAGNOSES: 1. Pancytopenia secondary to B12 deficiency. 2. Nitrous oxide intoxication. SUBJECTIVE: Very pleasant 22-year-old lady seen and examined at bedside. She is awake, alert and conversant. Nursing reports no overnight difficulties. She continues both IM and p.o. B12 supplementation. She continues to experience numbness and tingling, which has reportedly improved slightly. She is tolerating her diet and otherwise ambulating ad loreta. Peripheral blood counts are definitely showing evidence of improvement. Peripheral blasts were reported over the weekend, but again while bone marrow is recovering, it is not uncommon to see more peripheral blasts. PHYSICAL EXAMINATION: GENERAL: She is in no acute distress. VITAL SIGNS: Temperature 36.6, pulse 86, respirations 16, and blood pressure 102/66. SKIN: Without rash or lesion. HEENT: Oral mucosa without erythema or ulceration. NECK: Supple. HEART: Regular rate and rhythm. LUNGS: Clear to auscultation. ABDOMEN: Soft, nontender, and nondistended. EXTREMITIES: No clubbing, cyanosis or edema. NEUROLOGIC: Again, mild sensory deficit persists. Otherwise, motor functions are stable. LABORATORY DATA: WBC count 2570, hemoglobin 8.6, and platelet count 29,000. Sodium 140, potassium 3.8, chloride 108, carbon dioxide 28, creatinine 0.52, and BUN 8. IMPRESSION: 1. Pancytopenia secondary to B12 deficiency. 2. Nitrous oxide intoxication. PLAN: I took over service for Dr. Nichols. Case was reviewed in depth with him prior to taking over service. She continues both IM and p.o. B12 supplementation. Her counts are definitely responding to the point, where she does not require transfusional support. I did question nursing about potential counseling for this individual considering the circumstances that brought her to the hospital for admission. From a hematologic standpoint, I will continue to follow her periodically and will ensure that she is scheduled for outpatient followup with Dr. Nichols upon discharge. I have nothing further to add at this point. Thank you for allowing us to participate in the care of this very pleasant patient.
--- NOTE | 2017-10-13 10:09 | Medical Student: [facility] ---
Med Student Progress Note Date of Service Oct 13, 2017. Subjective Pt evaluation today including: conversation w/ patient, physical exam Voiding: no voiding problems Pt is a 22 yo F who presented with bilateral hand and feet numbness due to nitrous oxide use and B12 deficiency. She reports doing much better now and there is still some numbness in the hands and feet. She said at night the numbness seems worse but there were no issues with ambulation like she did when she first came in. She reports some weakness with writing and says she feel like her hands and feet are swollen but is unsure whether it might just be from the numbness and tingling. Pt had a lot of concerns about possible intermediate sequelae of her nitrous oxide use including back surgery and amputation. Pt denies any headache, nausea, or vomiting, and is eating okay. She thinks she may have anemia at baseline but is unsure. There might be some family history of hematologic disorder but she is unsure about it either.. Pt says her mom is arriving in [place] later today and will be taking care of her. She sounds motivated to quit her nitrous oxide use. She's been using it for 2 years as would use up to hundreds per day sometimes and says it is easy to obtain from stores [place] and a lot of her friends us it. She did not use any from March 2017 to June 2017 due to being back home in [place]. Review of Systems Constitutional: No fever, No chills Eyes: No worsening of vision ENT: No hearing loss Respiratory: No cough, No sputum, No wheezing, No shortness of breath Cardiac: No chest pain Abdomen: No pain, No nausea Musculoskeletal: No joint pain Female : No dysuria, No urinary frequency Neurologic: + numbness/tingling (hands and feet bilaterally), No memory loss, No paralysis Heme: + abnormal bleeding/bruising Endo: + fatigue Objective Vital Signs Date Time Temp Pulse Resp B/P (MAP) Pulse Ox O2 Delivery O2 Flow Rate FiO2 10/13/17 06:58 36.6 86 16 102/66 (78) 99 Room Air 10/13/17 00:53 36.7 102 16 103/67 (79) 99 Room Air 10/13/17 00:05 Room Air 10/12/17 19:26 36.7 10/12/17 16:30 Room Air 10/12/17 15:17 36.7 92 18 113/76 (88) 100 Room Air Physical Exam General Appearance: WD/WN, no apparent distress Eyes: bilateral eyes normal inspection, bilateral eyes PERRL, bilateral eyes EOMI ENT: normal ENT inspection, hearing grossly normal Neck: supple, no adenopathy Respiratory/Chest: chest non-tender, lungs clear, normal breath sounds, no respiratory distress Cardiovascular: regular rate, rhythm, no edema, no gallop, no JVD, no murmur Abdomen: normal bowel sounds, non tender, soft Extremities: normal range of motion, non-tender Neurologic/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 Several bruises on hands and feet.) Laboratory Results Last 24 Hours Test 10/13/17 05:18 White Blood Count 2.57 K/uL Red Blood Count 2.68 M/uL Hemoglobin 8.6 g/dL Hematocrit 26.1 % Mean Corpuscular Volume 97.4 fL Mean Corpuscular Hemoglobin 32.1 pg Mean Corpuscular Hemoglobin Concent 33.0 g/dl Platelet Count 29 K/uL Neutrophils (%) (Auto) % Lymphocytes (%) (Auto) % Monocytes (%) (Auto) % Eosinophils (%) (Auto) % Basophils (%) (Auto) % Neutrophils # (Auto) K/uL Lymphocytes # (Auto) K/uL Monocytes # (Auto) K/uL Eosinophils # (Auto) K/uL Basophils # (Auto) K/uL RDW Standard Deviation 68.6 fL RDW Coefficient of Variation 21.3 % Immature Granulocyte % (Auto) % Immature Granulocyte # (Auto) K/uL Nucleated RBC Absolute Count (auto) 0.14 K/uL Neutrophils % (Manual) 2.6 % Lymphocytes % (Manual) 75.4 % Monocytes % (Manual) 12.3 % Eosinophils % (Manual) 1.8 % Metamyelocytes % 0.9 % Myelocytes % 7.0 % Nucleated Red Blood Cells % 5.6 % Neutrophils # (Manual) 0.07 K/uL Total Absolute Neutrophils 0.07 K/uL Lymphocytes # (Manual) 1.94 K/uL Total Absolute Lymphocytes 1.94 K/uL Monocytes # (Manual) 0.32 K/uL Eosinophils # (Manual) 0.05 K/uL Metamyelocytes # 0.02 K/uL Myelocytes # 0.18 K/uL Hypersegmented Polys 1+ Platelet Estimate DECREASED Polychromasia 1+ Anisocytosis PRESENT Sodium Level 140 mmol/L Potassium Level 3.8 mmol/L Chloride Level 108 mmol/L Carbon Dioxide Level 28 mmol/L Anion Gap 4.0 mmol/L Blood Urea Nitrogen 8 mg/dl Creatinine 0.52 mg/dl Est Creatinine Clear Calc Drug Dose 147.9 ml/min Estimated GFR () > 150.0 Estimated GFR (Non- 136.6 BUN/Creatinine Ratio 15.7 Random Glucose 94 mg/dl Calcium Level 8.4 mg/dl Assessment and Plan Assessment and Plan: Pt is a 22 yo F with a 2 yr hx of nitrous oxide abuse and B12 deficiency who presents with bilateral hand numbness/tingling and bilateral feet numbness/ tingling that resulted in a temporary difficulty in walking when she presented to the ED. She was found to be pancytopenic, also likely due to the B12 deficiency. She reports doing much better now but the numbness and tingling is still present. She appears quite anxious about the possible medical terminologist sequelae of nitrous oxide abuse and a large portion of the interaction was done discussing cessation and answering questions. WBC 2.57 , RBC 2.68, plt 29 (10/13/2017 05:18) Pancytopenia - likely from B12 deficiency - PRBC transfusion 1 unit done on 10/10/2017 when Hgb 6.5 - heme/onc consulted and bone marrow biopsy obtained - improvements are being seen with B12 supplementation - Set up outpatient heme/onc f/u - Neutropenic precaution Peripheral neuropathy - likely from B12 deficiency - pt reports significant improvement compared to time of admission. Nights seem to feel worse. No difficulty with walking. - continue B12 supplementation with both IM cyanocobalamin 1000mcg and IV cyanocobalamin 500mg. Will continue treatment after discharge Chronic nitrous oxide use - Pt had a lot of questions about what could possibly happen with continued use and asked about back surgery, paralysis, amputation, etc... - Pt is aware of the harmful consequences of the abuse and appears motivated to quit. - Mother will be arriving at [place] later today to take care of patient Continued [facility] stay due to: other (Severe pancytopenia) Discharge planning: home
[2017-10-13 16:16] VITALS: BP 99/65; PULSE 94; TEMP 37.2; O2SAT 98
--- NOTE | 2017-10-13 17:35 | ECHOCARDIOGRAM REPORT ---
*NOTICE TO RECEIVING [employer] This information is strictly Confidential and protected under [place] law. [place] law prohibits you from making any further disclosure of this information unless further disclosure is expressly permitted by the written consent of the person to whom it pertains or is authorized by law. A general authorization for the release of medical or other information is not sufficient for this purpose. Hospital accepts no responsibility if the information is made available to any other person, INCLUDING THE PATIENT. Interpretation Summary * Name: DORIS COSTA Study Date: 10/13/2017 02:46 PM BP: 102/66 mmHg * Patient Location: .4E\S\E401\S\1 HR: 97 * : 1995 (M/d/yyyy) Gender: Female Height: 64 in * Age: 22 yrs Ethnicity: Weight: 130 lb * Ordering Physician: Deena Jaquez * Referring Physician: Self, Referred * Performed By: Allison Servin RDCS * * Reason For Study: NITROUS OXIDE ABUSE, ?PULM HTN * BSA: 1.6 m2 * -- Conclusions -- * 1. Normal left ventricular size and systolic function. EF 55-60%. No regional wall motion abnormalities. No left ventricular hypertrophy. No significant diastolic dysfunction. * 2. No significant valvular abnormalities visualized. * 3. Normal right ventricular systolic pressure. * 4. No prior study available for comparison. Procedure Details * A complete two-dimensional transthoracic echocardiogram was performed (2D, M-mode, Doppler and color flow Doppler). Left Ventricle * Normal left ventricular size and systolic function. EF 55-60%. No regional wall motion abnormalities. No left ventricular hypertrophy. No significant diastolic dysfunction. Right Ventricle * The right ventricle is normal in size and function. * The right ventricular systolic function is normal as assessed by tricuspid annular plane systolic excursion (TAPSE) (normal >1.5 cm). Atria * The left atrial size is normal. * Right atrial size is normal. * There is no evidence of atrial septal defect, but resolution does not allow assessment for a patent foramen ovale. Mitral Valve * The mitral valve is grossly normal. * There is no mitral valve stenosis. * There is no mitral regurgitation noted. Tricuspid Valve * The tricuspid valve is not well visualized, but is grossly normal. * There is no tricuspid stenosis. * There is trace tricuspid regurgitation. Aortic Valve * The aortic valve is trileaflet. * No hemodynamically significant valvular aortic stenosis. * No aortic regurgitation is present. Pulmonic Valve * The pulmonary valve is inadequately visualized, but the Doppler data is adequate for interpretation. * There is no pulmonic valvular stenosis. * There is no significant pulmonary regurgitation. Great Vessels * The aortic root is normal size. * Aortic arch of normal dimension. Pericardium/Pleural * There is no pericardial effusion. Great Vessels * Normal inferior vena cava size and collapsability with sniff indicates a normal right atrial pressure of 3 mmHg MMode 2D Measurements and Calculations IVSd 0.50 cm IVSs 0.78 cm LVIDd 4.0 cm LVIDs 2.7 cm LVPWd 0.65 cm LVPWs 0.99 cm IVS/LVPW 0.77 FS 33.1 % EDV(Teich) 71.5 ml ESV(Teich) 27.0 ml EF(Teich) 62.2 % EDV(cubed) 65.7 ml ESV(cubed) 19.7 ml EF(cubed) 70.0 % % IVS thick 58.1 % % LVPW thick 53.8 % LV mass(C)d 61.3 grams LV mass(C)dI 37.6 grams/m\S\2 LV mass(C)s 58.9 grams LV mass(C)sI 36.1 grams/m\S\2 SV(Teich) 44.4 ml SI(Teich) 27.3 ml/m\S\2 SV(cubed) 46.0 ml SI(cubed) 28.2 ml/m\S\2 Ao root diam 2.7 cm Ao root area 5.7 cm\S\2 LA dimension 2.5 cm LA/Ao 0.92 LVAd ap4 25.4 cm\S\2 LVLd ap4 8.3 cm EDV(MOD-sp4) 64.4 ml EDV(sp4-el) 65.9 ml LVAs ap4 15.3 cm\S\2 LVLs ap4 7.1 cm ESV(MOD-sp4) 29.0 ml ESV(sp4-el) 27.9 ml EF(MOD-sp4) 55.0 % EF(sp4-el) 57.7 % LVAd ap2 25.6 cm\S\2 LVLd ap2 7.5 cm EDV(MOD-sp2) 70.7 ml EDV(sp2-el) 74.1 ml LVAs ap2 15.6 cm\S\2 LVLs ap2 7.0 cm ESV(MOD-sp2) 29.5 ml ESV(sp2-el) 29.6 ml EF(MOD-sp2) 58.3 % EF(sp2-el) 60.1 % LVLd %diff -10.27 % EDV(MOD-bp) 70.5 ml LVLs %diff -1.44 % ESV(MOD-bp) 28.8 ml EF(MOD-bp) 59.2 % SV(MOD-sp4) 35.4 ml SI(MOD-sp4) 21.7 ml/m\S\2 SV(MOD-sp2) 41.2 ml SI(MOD-sp2) 25.3 ml/m\S\2 SV(MOD-bp) 41.7 ml SI(MOD-bp) 25.6 ml/m\S\2 SV(sp4-el) 38.0 ml SI(sp4-el) 23.3 ml/m\S\2 SV(sp2-el) 44.5 ml SI(sp2-el) 27.3 ml/m\S\2 Doppler Measurements and Calculations MV E max concepción 81.5 cm/sec MV A max concepción 58.2 cm/sec MV E/A 1.4 MV dec time 0.22 sec Ao V2 max 117.5 cm/sec Ao max PG 5.5 mmHg Ao max PG (full) 2.4 mmHg LV V1 max PG 3.1 mmHg LV V1 max 88.4 cm/sec TV E max concepción 62.1 cm/sec TR max concepción 171.4 cm/sec RVSP(TR) 14.8 mmHg RAP systole 3.0 mmHg
--- NOTE | 2017-10-13 21:45 | Family Medicine Progress Note ---
Progress Note Date of Service Oct 13, 2017. Subjective Pt evaluation today including: conversation w/ patient, conversation w/ family The patient was seen and examined at bedside. No acute overnight events. Patient is quiet and reserved and asked me several times if she was going to . I assured her that she was not going to . Pt admits to inhaling nitrous oxide approx 200 bottles per day. It was not an attempt at self harm but instead to get high. Patient states that her friends do it as well. Patient is resting comfortably in bed. Denies having any pain. Eating and urinating well. Plan of care was described to the patient and all questions were answered. Constitutional: No fever, No chills, No sweats ENT: No hearing loss Respiratory: No cough, No wheezing, No shortness of breath Cardiovascular: No chest pain Abdomen: No pain, No nausea, No vomiting, No diarrhea Female : No dysuria Objective Physical Exam Notes: General Appearance: WD/WN, no apparent distress Eyes: bilateral eyes normal inspection, bilateral eyes PERRL, bilateral eyes EOMI ENT: normal ENT inspection, hearing grossly normal Neck: supple, no adenopathy Respiratory/Chest: chest non-tender, lungs clear, normal breath sounds, no respiratory distress Cardiovascular: regular rate, rhythm, no edema, no gallop, no JVD, no murmur Abdomen: normal bowel sounds, non tender, soft Extremities: normal range of motion, non-tender Neurologic/Psychiatric: pilot submersible II-XII nml as tested, alert, normal mood/affect, oriented x 3, + sensory deficit (reports numbness and tingling in both hands and both feet), intact sensation to light touch over the hands and feet bilaterally. Excellent power in both upper and lower extremities. Pt denies SI or HI. Skin: + pertinent finding (petechiae across upper chest, some around chin area. Several bruises on hands and feet.) Laboratory Results ECHO CARDIOGRAM * 1. Normal left ventricular size and systolic function. EF 55-60%. No regional wall motion abnormalities. No left ventricular hypertrophy. No significant diastolic dysfunction. * 2. No significant valvular abnormalities visualized. * 3. Normal right ventricular systolic pressure. * 4. No prior study available for comparison. 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 We are aggressively repleting with B12. Bone Marrow biopsy is pending. Echocardiogram was performed and was normal. B12 deficiency B12 level severely low at 154, deficiency likely in setting of nitrous oxide inhalation has been documented although mechanism is poorly understood - Continue IM cyanocobalamin 1000 mcg daily - Continue PO cyanocobalamin 500mcg this daily - Plans for aggressive B12 supplementation: IM daily x 1 week, IM weekly x 3 weeks, IM monthly x 2 months, with vitamin level check subsequently to determine further management Pancytopenia -almost certainly related to poor marrow production from near-absence of B12 ( low level, and question her ability to even utilize the B12 she has given the possibility of nitrous inactivating this as well) s/p transfusion of 1 unit of PRBC due to Hgb of of 6.5 (10/10/17) - 3 more units on hold hemoglobin improved subsequently, white cell count improving spontaneously, platelets starting to trend up - given likely adequate EPO/TPO/CSF, will likely continue to trend up now that B12 provided - Bone marrow biopsy performed - analysis pending - Daily CBC - plans to transfuse if platelets drop below 10 - Neutropenic Precautions - Will need Heme/Onc follow up on Discharge with Dr. Aguirre. peripheral neuropathy As manifest by hand/feet numbess/tingling - Continue to replace B12 as above Chronic nitrous oxide inhalation Her condition appears to be the root cause of all of above due to nitrous showing ability to inhibit B12 absorption as well as utilization. Repeated counselling on cessation. Patient states she has not used for 6 days, and understands that ongoing use could be fatal. She appears motivated to not use again Hypokalemia - K+ 3.8 today - resolved - Trend BMP DVT Prophylaxis - SCD - TEDs due to thrombocytopenia. Dispo: Med Surg, Mom is arriving tomorrow. FULL CODE Resident Physician Supervision Note: I was present with the resident during the history and exam. I discussed the case with the resident and agree with the findings and plan as documented in the note. Translation with the help of the MSIII. Appreciate hematology input. Also counseled the patient regarding the risks of NO inhalation. Would like to see successive days of increase in her HgB and plt count prior to discharge. She will need outpatient hematology follow up and will also work with social services assistant regarding continued counseling. Documented By: Sukhwinder Lehman Resident Involvement: Resident Care Provided Care Provided: Adult [facility]
[2017-10-13 23:52] VITALS: BP 108/64; PULSE 92; TEMP 37.3; O2SAT 100
[2017-10-14 06:34] LABS: BUN/CREATININE RATIO 15.3 (10-20); CALCIUM 8.4 mg/dl (8.5-10.1); CREATININE 0.78 mg/dl (0.60-1.20); POTASSIUM 3.8 mmol/L (3.5-5.1)
[2017-10-14 06:50] LABS: HEMATOCRIT 26.1 % (37-47); MEAN CELL VOLUME 98.9 fL (80-100); MEAN CORPUSCULAR HEMOGLOBIN 31.8 pg (25-34); MEAN CORPUSCULAR HGB CONC 32.2 g/dl (32-36); MEAN PLATELET VOLUME 12.1 fL (7.4-10.4); PLATELET COUNT 76 K/uL (130-400); RED BLOOD COUNT 2.64 M/uL (4.2-5.4); WHITE BLOOD COUNT 3.51 K/uL (4.8-10.8)
[2017-10-14 06:52] LABS: ANISOCYTOSIS PRESENT; LARGE PLATELETS 1+; PLT ESTIMATE DECREASED; POLYCHROMASIA 2+; TEAR DROP CELLS 1+
[2017-10-14 07:02] LABS: COMPLETE YES; LYMPH ABS # 1.88 K/uL (1.2-3.4); LYMPHOCYTE % 53.6 %; META ABS # 0.21 K/uL (0-0); METAMYELOCYTE % 6.1 %; MYELOCYTE % 8.8 %; NEUTROPHILS % 6.1 %
[2017-10-14] MEDS ORDERED: VTMB12 PO ×2 (07:19→11:26)
[2017-10-14 07:59] VITALS: BP 101/66; PULSE 93; TEMP 37; O2SAT 99
--- NOTE | 2017-10-14 08:44 | Medical Student: [facility] ---
Med Student Progress Note Date of Service Oct 14, 2017. 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 She was also found to be pancytopenia, likely caused by the B12 deficiency as well. Pt is responding to treatments and her pancytopenia is slowing improving. She said she had some trouble sleeping last night and woke up 3-4 times. She received PRN IV Toradol and PO Tylenol when she complained of pain but did not get much relief. Her numbness/tingling in the hands and feet continue to be about the same compared to yesterday. Pt does not appear as anxious as yesterday. She still had quite a few questions about easy bruising which were addressed. She denies any headache or N/V and is tolerating a regular diet. Her echocardiogram result was normal and reviewed with her. Her blood work was also reviewed with her. Pt's mother is arriving this afternoon. Pt says she will probably take a leave of absence after being discharged and spend some time in [place] to recover. She is aware of having to continue outpatient treatment for the B12 deficiency. She says going back to [place] is probably better because there it's much harder to access the nitrous oxide as well as other substances. She does sound motivated to quit, but she also has told me several times how easy it can be for her to gain access if she's in the [place] especially given how people in her social/friend group does the same thing. Review of Systems Constitutional: No fever, No chills Eyes: No worsening of vision ENT: No hearing loss Respiratory: No cough, No sputum, No wheezing, No shortness of breath Cardiac: No chest pain, No orthopnea Abdomen: No pain, No nausea, No vomiting, No diarrhea, No constipation Musculoskeletal: No joint pain, No muscle pain Female : No dysuria, No urinary frequency Neurologic: No memory loss Psychiatric: + see HPI Heme: + abnormal bleeding/bruising (First noticed about 2 weeks ago. Now has various bruises on upper (mainly injection sites) and lower extremity. Petechiae on chest and chin) Endo: + fatigue Objective Vital Signs Date Time Temp Pulse Resp B/P (MAP) Pulse Ox O2 Delivery O2 Flow Rate FiO2 10/14/17 00:05 Room Air 10/13/17 23:52 37.3 92 16 108/64 (79) 100 Room Air 10/13/17 16:30 Room Air 10/13/17 16:16 37.2 94 18 99/65 (76) 98 Room Air Physical Exam General Appearance: WD/WN, no apparent distress Eyes: bilateral eyes normal inspection, bilateral eyes PERRL, bilateral eyes EOMI ENT: normal ENT inspection Neck: supple, no adenopathy, thyroid normal, no JVD Respiratory/Chest: chest non-tender, lungs clear, normal breath sounds, no respiratory distress Cardiovascular: regular rate, rhythm, no edema, no gallop, no JVD, no murmur Abdomen: normal bowel sounds, non tender, soft, no organomegaly Extremities: normal range of motion, non-tender, normal inspection Neurologic/Psychiatric: edge kitter II-XII nml as tested, alert, oriented x 3, + sensory deficit (numbness and tingling still in hands an feet bilaterally. Better from time of admission but about the same as yesterday) Skin: + pertinent finding (petechiae across upper chest and chin. brusing at injection sites on her arms bilaterally as well as bruises on arms and legs from bumping into things) Lymphatic: no adenopathy Laboratory Results Last 24 Hours Test 10/14/17 05:33 White Blood Count 3.51 K/uL Red Blood Count 2.64 M/uL Hemoglobin 8.4 g/dL Hematocrit 26.1 % Mean Corpuscular Volume 98.9 fL Mean Corpuscular Hemoglobin 31.8 pg Mean Corpuscular Hemoglobin Concent 32.2 g/dl Platelet Count 76 K/uL Mean Platelet Volume 12.1 fL RDW Standard Deviation 73.4 fL RDW Coefficient of Variation 21.6 % Nucleated RBC Absolute Count (auto) 0.16 K/uL Neutrophils % (Manual) 6.1 % Lymphocytes % (Manual) 53.6 % Monocytes % (Manual) 25.4 % Metamyelocytes % 6.1 % Myelocytes % 8.8 % Nucleated Red Blood Cells % 4.5 % Neutrophils # (Manual) 0.21 K/uL Total Absolute Neutrophils 0.21 K/uL Lymphocytes # (Manual) 1.88 K/uL Total Absolute Lymphocytes 1.88 K/uL Monocytes # (Manual) 0.89 K/uL Metamyelocytes # 0.21 K/uL Myelocytes # 0.31 K/uL Platelet Estimate DECREASED Large Platelets 1+ Polychromasia 2+ Anisocytosis PRESENT Tear Drop Cells 1+ Sodium Level 138 mmol/L Potassium Level 3.8 mmol/L Chloride Level 106 mmol/L Carbon Dioxide Level 26 mmol/L Anion Gap 6.0 mmol/L Blood Urea Nitrogen 12 mg/dl Creatinine 0.78 mg/dl Est Creatinine Clear Calc Drug Dose 98.6 ml/min Estimated GFR () 126.0 Estimated GFR (Non- 108.7 BUN/Creatinine Ratio 15.3 Random Glucose 92 mg/dl Calcium Level 8.4 mg/dl Assessment and Plan Assessment and Plan: pt is a 22 yo F who presents with peripheral neuropathy and pancytopenia from B12 deficiency likely secondary to chronic nitrous oxide abuse. Pt has been recovering since being admitted and still complains of hands and feet being numb and tingle but better than when first admitted. Pancytopenia also resolving with B12 cessation and huffing cessation. WBC 3.51 , RBC 2.64 , plt 76 , Hgb 8.4 (10/14/2017 05:33) Pancytopenia - likely from B12 deficiency - PRBC transfusion 1 unit done on 10/10/2017 when Hgb 6.5 - heme/onc consulted - improvements are being seen with B12 supplementation - Set up outpatient heme/onc f/u and outpatient B12 injection appts Peripheral neuropathy - likely from B12 deficiency - pt reports improvement. Reporting of pain at night not relieved by PO Tylenol or PO Toradol. - continue B12 supplementation after discharge with both IM and PO - 1000 mcg IM once weekly for 4 weeks - 1000 mcg PO q AM for 30 days Chronic nitrous oxide use - Pt is aware of the harmful consequences of the abuse and appears motivated to quit. Consider [facility] appt on campus - Mother will be arriving at [facility] later today to take care of patient. Pt says she might be taking leave of absence sometime to go back to [place] temporarily. Continued [facility] stay due to: other (Severe pancytopenia) Discharge planning: home
--- NOTE | 2017-10-14 08:47 | HEME/ONC PROGRESS NOTE ---
DATE: 10/14/2017 DIAGNOSES: 1. Pancytopenia secondary to B12 deficiency. 2. Nitrous oxide intoxication. SUBJECTIVE: The patient is a very pleasant 22-year-old lady seen and examined again at bedside. Her peripheral blood counts have improved dramatically; however, her neutrophil count continues to lag. She has had no fever or chills overnight. She is tolerating her diet and ambulating ad loreta. According to clinical notes, I believe patient is pending discharge. She offers no specific complaints this morning. PHYSICAL EXAMINATION: GENERAL: She is in no acute distress. VITAL SIGNS: Temperature 37, pulse 93, respirations 18, blood pressure 101/66. SKIN: Without rash or lesion. HEENT: Oral mucosa without erythema or ulceration. NECK: Supple. HEART: Regular rate and rhythm. LUNGS: Clear to auscultation bilaterally. ABDOMEN: Soft, nontender, nondistended. EXTREMITIES: No clubbing, cyanosis or edema. NEUROLOGIC: Again, grossly intact. LABORATORY DATA: WBC count 3510, hemoglobin 8.4, platelet count 76,000, absolute neutrophil count remains quite low at 210. Sodium 138, potassium 3.8, chloride 106, carbon dioxide 26, creatinine 0.78, BUN 12. IMPRESSION: 1. Pancytopenia secondary to B12 deficiency. 2. Nitrous oxide intoxication. PLAN: A very pleasant 22-year-old female seen and examined at bedside today. She seems to be making strides clinically. Her peripheral blood counts continue to rise. However, her neutrophils have been slow to recover. She is asymptomatic otherwise and would recommend not intervening and allowing her to recover spontaneously. I trust she will be provided adequate B12 supplementation upon discharge. I would also recommend that the patient be seen by Dr. Nichols within 1-2 weeks post-discharge. I have nothing further to add and will officially sign off today. Thank you again for allowing us to participate in the care of this young lady.
[2017-10-14] MEDS: CYANOCOBALAMIN 1000 MCG/ML VIAL IM SCH (08:54)
[2017-10-14] MEDS: CYANOCOBALAMIN 500 MCG TAB (VIT B-12) PO SCH (08:54)
[2017-10-14 09:32] VITALS: BP 101/66; PULSE 93; TEMP 37; O2SAT 99
[2017-10-14] MEDS ORDERED: CYNI1000 IM (11:26)
--- NOTE | 2017-10-14 11:29 | Discharge Instructions ---
Discharge Instructions Date of Service Oct 14, 2017. Admission Reason for Admission: Huffing, Pancytopenia Discharge Discharge Diagnosis / Problem: Pancytopenia, B12 deficiency Discharge Goals Goal(s): Decrease discomfort, Therapeutic intervention, Prevent Disease Progression Activity Recommendations Activity Limitations: as noted below Lifting Limitations: gradually increase as tolerated Exercise/Sports Limitations: until after follow-up appointment May Resume Sexual Activity: when tolerated Shower/Bathe: no limitations Driving or Machine Use: no limitations . Instructions / Follow-Up Instructions / Follow-Up Please do not use nitrous oxide anymore. This has resulted in severe b12 deficiency which has affected all of your blood counts and caused your neuropathy. Your blood counts have improved. You will need to continue taking oral vitamin B12 as well as weekly b12 IM injections. Please follow up with Dr. Kent at the [facility] Medicine clinic on Friday, Oct 15, 2017 at 10;10 am. You will also need repeat blood work. Follow up will also be arranged with Hematology. We also recommend getting established with [facility] at [facility] for counselling services. Current Hospital Diet Patient's current hospital diet: Regular Diet Discharge Diet Recommended Diet: Regular Diet Pending Studies Studies pending at discharge: no Medical Emergencies . Who to Call and When: Medical Emergencies: If at any time you feel your situation is an emergency, please call 911 immediately. . Non-Emergent Contact Non-Emergency issues call your: Primary Care Provider Call Non-Emergent contact if: you have a fever . . "Provider Documentation" section prepared by Deena Euceda. . VTE Core Measure Inpt VTE Proph given/why not?: SCD's, Contraindicated
--- NOTE | 2017-10-14 11:52 | Discharge Summary ---
Discharge Summary Date of Service Oct 14, 2017. 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 Normal left ventricular size and systolic function. EF 55-60%. No regional wall motion abnormalities. No left ventricular hypertrophy. No significant diastolic dysfunction. * 2. No significant valvular abnormalities visualized. * 3. Normal right ventricular systolic pressure. * 4. No prior study available for comparison. Medication Reconciliation New Medications: Cyanocobalamin (Cyanocobalamin) 1,000 Mcg/Ml Inj 1000 MCG IM weekly, #4 1000 mg IM once weekly x 4 weeks. Cyanocobalamin (Vitamin B-12) 500 Mcg Tab 1000 MCG PO QAM for 30 Days, #30 TAB Discontinued Medications: [Slovenian Antibiotic] () 1 CAP PO DAILY for 5 Days BEGIN 10/06/17 X 5 DAYS Discharge Exam Patient is resting comfortably in bed. Patient is visibly more calm and comfortable today than yesterday. She denies having any pain. Ambulated to the cafeteria yesterday evening to get a snack. Eating and urinating well. Mom is arriving at 2pm from [place] today. Plan of care was described to the patient and all questions were answered. Constitutional: No fever, No chills, No sweats ENT: No hearing loss Respiratory: No cough, No wheezing, No shortness of breath Cardiovascular: No chest pain Abdomen: No pain, No nausea, No vomiting, No diarrhea Female : No dysuria Physical Exam General Appearance: WD/WN, no apparent distress Eyes: bilateral eyes normal inspection, bilateral eyes PERRL, bilateral eyes EOMI ENT: normal ENT inspection, hearing grossly normal Neck: supple, no adenopathy Respiratory/Chest: chest non-tender, lungs clear, normal breath sounds, no respiratory distress Cardiovascular: regular rate, rhythm, no edema, no gallop, no JVD, no murmur Abdomen: normal bowel sounds, non tender, soft Extremities: normal range of motion, non-tender Neurologic/Psychiatric: senior staff specialized employment II-XII nml as tested, alert, normal mood/affect, oriented x 3, + sensory deficit (reports numbness and tingling in both hands and both feet), intact sensation to light touch over the hands and feet bilaterally. Excellent power in both upper and lower extremities. Pt denies SI or HI. Skin: + pertinent finding (petechiae across upper chest, some around chin area. Several bruises on hands and feet similar in appearance to yesterday.) Hospital Course 22F 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 We aggressively repleting with IM and oral B12. Bone Marrow biopsy is pending. Echocardiogram was performed and was normal. Patient was discharged with WBC counts trending up. (WBC of 3.5 and ANC of 0.21). She will be followed up tomorrow (10/15/2017 ) with Dr. Eli Kent at 10:10. We are recommended one more IM Vit B12 shot with weekly B12 shots thereafter and 1000mg daily of Vit B12. We are also arranging follow up with Dr. Nichols within one week who will be able to follow up the bone marrow results. We recommend a follow up CBC with differential on FridayOctober 17 and the following week. We emphasized that the patient needs to stop taking 'Whip Its'. We also advised that the patient see a therapist at [facility], we will make that introduction for her and she should follow up if she feels there is a benefit. Resident Physician Supervision Note: I was present with the resident physician during the history and exam. I discussed the case with the resident and agree with the findings and plan as documented in the note. Appropriate follow-up has been established in our office as she does not have a primary care physician previously. We can continue IM B12 shots in addition to by mouth supplementation; follow-up CBC recommended in 3 days. She will follow-up with hematology to be scheduled next week as well. Documented By: Sukhwinder Lehman Total Time Spent: Greater than 30 minutes This includes examination of the patient, discharge planning, medication reconciliation, and communication with other providers. Total time 45 minutes. Discharge Instructions Please refer to the electronic Patient Visit Report (Discharge Instructions) for additional information. Follow-Up Follow up with Dr. Eli Kent tomorrow (10/15/2017). Additional Copies To Torin Nichols MD; Alka. Kent MD Resident Involvement: Resident Care Provided Care Provided: [facility]
== END 2017-10-14 14:45 | disposition home or self-care (01) | DRG 810 ==
LOC: C.EDB 01:53 → C.2T 04:44 → EDBEDREQ 04:47 → ENRESERV 07:29 → C.4E 18:00
PROVIDERS: ADMIT Student in an Organized Health Care Education/Training Program; ATTEND Family Medicine
DX: D61.818 Other pancytopenia (principal); E53.8 Deficiency of other specified B group vitamins; F18.129 Inhalant abuse with intoxication, unspecified; E87.6 Hypokalemia; G63 Polyneuropathy in diseases classified elsewhere

== ENCOUNTER 2018-11-17 14:10 | Observation (INO) ==
--- NOTE | 2018-11-17 14:27 | Emergency Department Note ---
Entered by Elen Vazquez acting as a scribe for Wolfgang Benjamin DO History of Present Illness General Chief complaint: Mental Health Evaluation Time Seen by Provider: 11/17/18 14:15 Source: patient, EMS and RN notes reviewed Mode of arrival: EMS History of Present Illness Provider complaint: need for mental health evaluation Onset (ago): day(s) (CSR) Location: head Severity: similar to prior episodes Pain Consistency: + other (episode) Quality: + other (need for mental health evaluation) Associated symptoms: + other (Associated symptoms: huffing compressed air. Denies: any complaints) The patient is a 23 year old female who presents to the Emergency Room with complaints of an episode of a need for mental health evaluation beginning CSR. A client delivery specialist who frequently delivers to the patient called EMS over concerns that she was not taking care of herself. The patient has been receiving 3 or 4 cans of whipped cream every week, which she uses to rodriguez compressed air. There were hundreds of bottles in the patient's house. EMS reports the patient was covered in a blanket that covered in both recent and old stool stains. Nursing staff states the patient was hospitalized for similar symptoms last year. The patient does not have any complaints. She does not use any medication and states she does not have family close by. The patient denies tobacco or alcohol use. Home Medications Home Medications Medication Instructions Recorded Confirmed Type cyanocobalamin (vitamin B-12) 1,000 mcg PO QAM 11/17/18 11/17/18 History [Vitamin B-12] Allergies Allergy/AdvReac Type Severity Reaction Status Date / Time No Known Allergies Allergy Unverified 11/17/18 16:39 Past Med/Surg History Medical History Huffing Pancytopenia Shortness of breath (Resolved) B12 deficiency DVT prophylaxis Functional quadriplegia Family History Unknown No problems noted. Other No family history of disorders Social History Feels Safe at Home: Yes Smoking Status: Never smoker Review of Systems See HPI for pertinent positives & negatives. Physical Exam Vital Signs Vital Signs - 24 hr 11/17/18 14:36 11/17/18 15:52 11/17/18 20:57 Temperature 36.5 C 36.7 C Temperature Source Oral Oral Sepsis Recent Fever Within 48 Hours No Sepsis New/Unexplained Change in Mental Status No Sepsis Action Taken by Nursing No Action Required Pulse Rate 70 Pulse Rate [Left] 74 Pulse Rate [Right Finger] 87 Pulse Rhythm [Left] Regular Pulse Strength [Left] Normal Respiratory Rate 21 18 18 Respiratory Effort / Characteristics Non-Labored Respiratory Depth Normal Blood Pressure 109/66 Blood Pressure [Left Arm] 107/57 L 113/69 Blood Pressure Mean 80 Blood Pressure Mean [Left Arm] 73 83 Blood Pressure Position [Left Arm] Lying Pulse Oximetry 99 98 98 Oxygen Delivery Method Room Air Room Air Room Air GENERAL: The patient is awake alert. She does not appear to be uncomfortable. EYES: The conjunctivae are clear. The pupils are round and reactive. EARS, NOSE, MOUTH AND THROAT: Mucous membranes are erythematous. The mucosa on the inner lips appears white and and has the appearance of a cold burn consistent with the patient's abuse of inhalants. NECK: The neck is nontender and supple. RESPIRATORY: Normal respiratory effort is noted there is no evidence of wheezing rhonchi or rales CARDIOVASCULAR: Regular rate and rhythm noted there no murmurs rubs or gallops normal S1 normal S2 GASTROINTESTINAL: The abdomen is soft. Bowel sounds are present in all quadrants. Abdomen is nontender MUSCULOSKELETAL/EXTREMITIES: There is no evidence of gross deformity full range of motion is noted in the hips and shoulders SKIN: There is no obvious evidence of any rash. Trace pedal edema was noted bilaterally. NEUROLOGIC: Patient is awake alert and oriented x3 strength is symmetric patellar reflexes are 2+ bilaterally PSYCH: The patient appears very uninterested in the interview. Her affect is flat. The patient makes poor eye contact for the majority of the interview. The patient is currently denying any suicidal homicidal ideation. Course 1418: Past medical records reviewed. The patient was evaluated in room C8, and a complete history and physical examination were performed. 1834: I reviewed the patient's case with Dr. Perez. [facility] hospitalist. He will evaluate the patient for further management. Consultations Consultation #1: I reviewed the patient's case with Dr. Perez. [facility] hospitalist. He will evaluate the patient for further management. Time: 18:34 Administered Medications Sodium Chloride (Nss 1000ml) 1,000 mls @ 125 mls/hr IV .Q8H JOSE Stop: 12/17/18 21:29 Last Admin: 11/17/18 21:57 Dose: 125 mls/hr Discontinued Medications Cyanocobalamin (Vitamin B-12) 1,000 mcg IM ONE ONE Stop: 11/17/18 19:01 Last Admin: 11/17/18 19:19 Dose: 1,000 mcg Sodium Chloride (Nss 1000ml) 1,000 mls @ 999 mls/hr IV .Q1H1M JOSE Stop: 11/17/18 15:30 Last Infusion: 11/17/18 16:27 Dose: 0 mls/hr Admin: 11/17/18 15:22 Dose: 999 mls/hr Sodium Chloride (Nss 1000ml) 1,000 mls @ 999 mls/hr IV .Q1H1M ONE Stop: 11/17/18 19:23 Last Infusion: 11/17/18 19:31 Dose: 0 mls/hr Admin: 11/17/18 18:37 Dose: 999 mls/hr Medical Decision Making Differential Diagnosis Etiologies such as toxicological process, infection, hypoglycemia, electrolyte abnormalities, cardiac sources, intracerebral event, neurologic process, as well as others were entertained. Medical Records Attestation: I reviewed the patient's medical records. Home Medications Current Medication List: was personally reviewed by me Laboratory Data Attestation: I reviewed the patient's lab results. Result diagrams: 11/17/18 15:05 11/17/18 15:05 Lab Results 11/17/18 11/17/18 11/17/18 Range/Units 15:05 15:05 15:05 WBC 3.85 L (4.8-10.8) K/uL RBC 3.45 L (4.2-5.4) M/uL Hgb 12.8 (12.0-16.0) g/dL Hct 36.9 L (37-47) % MCV 107.0 H (80-100) fL MCH 37.1 H (25-34) pg MCHC 34.7 (32-36) g/dL RDW Std Deviation 62.8 H (36.4-46.3) fL RDW Coeff of Lori 16.3 H (11.5-14.5) % Plt Count 150 (130-400) K/uL MPV 9.6 (7.4-10.4) fL Immature Gran % (Auto) 0.3 % Neut % (Auto) 68.0 % Lymph % (Auto) 22.1 % [place] % (Auto) 8.3 % Eos % (Auto) 1.3 % Baso % (Auto) 0.0 % Immature Gran # (Auto) 0.01 (0.00-0.02) K/uL Neut # (Auto) 2.62 (1.4-6.5) K/uL Lymph # (Auto) 0.85 L (1.2-3.4) K/uL [place] # (Auto) 0.32 (0.11-0.59) K/uL Eos # (Auto) 0.05 (0-0.5) K/uL Baso # (Auto) 0.00 (0-0.2) K/uL PT 10.0 (9.0-12.0) Seconds INR 1.0 (0.9-1.1) Sodium 137 (136-145) mmol/L Potassium 3.6 (3.5-5.1) mmol/L Chloride 108 H (98-107) mmol/L Carbon Dioxide 23 (21-32) mmol/L Anion Gap 6.0 (3-11) BUN 13 (7-18) mg/dl Creatinine 0.59 L (0.6-1.2) mg/dl Est Cr Clr Drug Dosing Not Reportable Est GFR ( Amer) > 150.0 Est GFR (Non-Af Amer) 130.1 BUN/Creatinine Ratio 22.4 H (10-20) Glucose 88 (70-99) mg/dl Calcium 9.3 (8.5-10.1) mg/dl Magnesium 2.3 (1.8-2.4) mg/dl Total Bilirubin 0.6 (0.2-1) mg/dl AST 18 (15-37) U/L ALT 34 (12-78) U/L Alkaline Phosphatase 106 (45-117) U/L Total Creatine Kinase 467 H (26-192) U/L Troponin I < 0.015 (0-0.045) ng/ml Total Protein 8.3 H (6.4-8.2) gm/dl Albumin 3.5 (3.4-5.0) gm/dl Globulin 4.8 H (2.5-4.0) gm/dl Albumin/Globulin Ratio 0.7 L (0.9-2) Lipase 180 (73-393) U/L Vitamin B12 (211-911) pg/ml TSH 2.190 (0.300-4.500) uIu/ml HCG, Qual (Negative) Urine Color Urine Appearance (Clear) Urine pH (4.5-7.5) Ur Specific Foster (1.000-1.030) Urine Protein (Negative) Urine Glucose (UA) (Negative) Urine Ketones (Negative) Urine Blood (Negative) Urine Nitrite (Negative) Urine Bilirubin (Negative) Urine Urobilinogen (Negative) Ur Leukocyte Esterase (Negative) Urine WBC (Auto) (0-5) /hpf Urine RBC (Auto) (0-4) /hpf U Hyaline Cast (Auto) (0-5) /lpf U Epithel Cells (Auto) (0-5) /lpf Urine Bacteria (Auto) (Negative) Salicylates (2.8-20) mg/dl Urine Opiates Screen (Neg) Ur Methadone, Qual (Neg) Acetaminophen (10-30) ug/ml Urine Barbiturates (Neg) Ur Phencyclidine (PCP) (Neg) U Amphetamin/Meth Scrn (Neg) MDMA (Ecstasy) Screen (Neg) U Benzodiazepines Scrn (Neg) Ur Cocaine Metabolite (Neg) U Marijuana (THC) Screen (Neg) Ethyl Alcohol mg/dL (0-3) mg/dl 11/17/18 11/17/18 11/17/18 Range/Units 15:05 15:05 15:05 WBC (4.8-10.8) K/uL RBC (4.2-5.4) M/uL Hgb (12.0-16.0) g/dL Hct (37-47) % MCV (80-100) fL MCH (25-34) pg MCHC (32-36) g/dL RDW Std Deviation (36.4-46.3) fL RDW Coeff of Lori (11.5-14.5) % Plt Count (130-400) K/uL MPV (7.4-10.4) fL Immature Gran % (Auto) % Neut % (Auto) % Lymph % (Auto) % [place] % (Auto) % Eos % (Auto) % Baso % (Auto) % Immature Gran # (Auto) (0.00-0.02) K/uL Neut # (Auto) (1.4-6.5) K/uL Lymph # (Auto) (1.2-3.4) K/uL Hanover # (Auto) (0.11-0.59) K/uL Eos # (Auto) (0-0.5) K/uL Baso # (Auto) (0-0.2) K/uL PT (9.0-12.0) Seconds INR (0.9-1.1) Sodium (136-145) mmol/L Potassium (3.5-5.1) mmol/L Chloride (98-107) mmol/L Carbon Dioxide (21-32) mmol/L Anion Gap (3-11) BUN (7-18) mg/dl Creatinine (0.6-1.2) mg/dl Est Cr Clr Drug Dosing Est GFR ( Amer) Est GFR (Non-Af Amer) BUN/Creatinine Ratio (10-20) Glucose (70-99) mg/dl Calcium (8.5-10.1) mg/dl Magnesium (1.8-2.4) mg/dl Total Bilirubin (0.2-1) mg/dl AST (15-37) U/L ALT (12-78) U/L Alkaline Phosphatase (45-117) U/L Total Creatine Kinase (26-192) U/L Troponin I (0-0.045) ng/ml Total Protein (6.4-8.2) gm/dl Albumin (3.4-5.0) gm/dl Globulin (2.5-4.0) gm/dl Albumin/Globulin Ratio (0.9-2) Lipase (73-393) U/L Vitamin B12 (211-911) pg/ml TSH (0.300-4.500) uIu/ml HCG, Qual Negative (Negative) Urine Color Urine Appearance (Clear) Urine pH (4.5-7.5) Ur Specific Foster (1.000-1.030) Urine Protein (Negative) Urine Glucose (UA) (Negative) Urine Ketones (Negative) Urine Blood (Negative) Urine Nitrite (Negative) Urine Bilirubin (Negative) Urine Urobilinogen (Negative) Ur Leukocyte Esterase (Negative) Urine WBC (Auto) (0-5) /hpf Urine RBC (Auto) (0-4) /hpf U Hyaline Cast (Auto) (0-5) /lpf U Epithel Cells (Auto) (0-5) /lpf Urine Bacteria (Auto) (Negative) Salicylates < 1.7 L (2.8-20) mg/dl Urine Opiates Screen (Neg) Ur Methadone, Qual (Neg) Acetaminophen < 2 L (10-30) ug/ml Urine Barbiturates (Neg) Ur Phencyclidine (PCP) (Neg) U Amphetamin/Meth Scrn (Neg) MDMA (Ecstasy) Screen (Neg) U Benzodiazepines Scrn (Neg) Ur Cocaine Metabolite (Neg) U Marijuana (THC) Screen (Neg) Ethyl Alcohol mg/dL < 3.0 (0-3) mg/dl 11/17/18 11/17/18 11/17/18 Range/Units 18:00 18:00 19:24 WBC (4.8-10.8) K/uL RBC (4.2-5.4) M/uL Hgb (12.0-16.0) g/dL Hct (37-47) % MCV (80-100) fL MCH (25-34) pg MCHC (32-36) g/dL RDW Std Deviation (36.4-46.3) fL RDW Coeff of Lori (11.5-14.5) % Plt Count (130-400) K/uL MPV (7.4-10.4) fL Immature Gran % (Auto) % Neut % (Auto) % Lymph % (Auto) % [place] % (Auto) % Eos % (Auto) % Baso % (Auto) % Immature Gran # (Auto) (0.00-0.02) K/uL Neut # (Auto) (1.4-6.5) K/uL Lymph # (Auto) (1.2-3.4) K/uL [place] # (Auto) (0.11-0.59) K/uL Eos # (Auto) (0-0.5) K/uL Baso # (Auto) (0-0.2) K/uL PT (9.0-12.0) Seconds INR (0.9-1.1) Sodium (136-145) mmol/L Potassium (3.5-5.1) mmol/L Chloride (98-107) mmol/L Carbon Dioxide (21-32) mmol/L Anion Gap (3-11) BUN (7-18) mg/dl Creatinine (0.6-1.2) mg/dl Est Cr Clr Drug Dosing Est GFR ( Amer) Est GFR (Non-Af Amer) BUN/Creatinine Ratio (10-20) Glucose (70-99) mg/dl Calcium (8.5-10.1) mg/dl Magnesium (1.8-2.4) mg/dl Total Bilirubin (0.2-1) mg/dl AST (15-37) U/L ALT (12-78) U/L Alkaline Phosphatase (45-117) U/L Total Creatine Kinase (26-192) U/L Troponin I (0-0.045) ng/ml Total Protein (6.4-8.2) gm/dl Albumin (3.4-5.0) gm/dl Globulin (2.5-4.0) gm/dl Albumin/Globulin Ratio (0.9-2) Lipase (73-393) U/L Vitamin B12 > 2000 H (211-911) pg/ml TSH (0.300-4.500) uIu/ml HCG, Qual (Negative) Urine Color Yellow Urine Appearance Clear (Clear) Urine pH 6.0 (4.5-7.5) Ur Specific Foster 1.012 (1.000-1.030) Urine Protein Negative (Negative) Urine Glucose (UA) Negative (Negative) Urine Ketones Negative (Negative) Urine Blood Negative (Negative) Urine Nitrite Positive H (Negative) Urine Bilirubin Negative (Negative) Urine Urobilinogen Negative (Negative) Ur Leukocyte Esterase Trace H (Negative) Urine WBC (Auto) 1-5 (0-5) /hpf Urine RBC (Auto) 0-4 (0-4) /hpf U Hyaline Cast (Auto) 1-5 (0-5) /lpf U Epithel Cells (Auto) 20-30 H (0-5) /lpf Urine Bacteria (Auto) 1+ H (Negative) Salicylates (2.8-20) mg/dl Urine Opiates Screen Neg (Neg) Ur Methadone, Qual Neg (Neg) Acetaminophen (10-30) ug/ml Urine Barbiturates Neg (Neg) Ur Phencyclidine (PCP) Neg (Neg) U Amphetamin/Meth Scrn Neg (Neg) MDMA (Ecstasy) Screen Neg (Neg) U Benzodiazepines Scrn Neg (Neg) Ur Cocaine Metabolite Neg (Neg) U Marijuana (THC) Screen Neg (Neg) Ethyl Alcohol mg/dL (0-3) mg/dl Imaging Data Radiologist's Impression: Radiology results as stated below per my review and the radiologist's interpretation: XR chest 1V portable CLINICAL HISTORY: medical clearance COMPARISON STUDY: No previous studies for comparison. FINDINGS: The bones soft tissues and hemidiaphragms are normal. The cardiomediastinal silhouette is normal. The lungs are clear. The pulmonary vasculature is normal. IMPRESSION: Negative chest. The above report was generated using voice recognition software. It may contain grammatical, syntax or spelling errors. Electronically signed by: Colby Rodriguez M.D. 11/17/2018 2:48 PM ECG Data Attestation: I personally reviewed and interpreted this ECG as follows: Indication: toxicologic Rate (beats per minute): 70 Rhythm: normal sinus Findings: + other (poor R wave progression noted); no PAC, no PVC, no ST depression and no ST elevation Comparison ECG Date: from (10/10/17) Change: no significant change Blood Pressure Blood Pressure Findings: Normal blood pressure Blood Pressure Disposition: did not require urgent referral MDM Narrative The patient is a 23-year-old female who presented to the emergency department for mental health evaluation. The patient was brought to the emergency department by ambulance. Ambulance was alerted by the police after a wellness check was requested by a food pizza delivery has been bringing food to the patient's house. The patient was found to be in a very disheveled state. She was covered with stool. She had pressure ulcers. She has a history of inhalation abuse. She admitted to inhalation abuse. She was seen in the past for similar symptoms. At this time she has very significant ataxia. She was treated with IV fluids. I discussed the patient's laboratory and radiographic studies with her. Ultimately she was evaluated by the mental health embedded case manager but they did not feel the patient was medically stable to be admitted by mental health. For this reason I discussed her case with the on-call [facility] hospitalist. They have agreed to evaluate the patient in the emergency department for further management and disposition. Impression & Plan Drug abuse, Pressure ulcer, Ataxia Discharge Plan Visit Data *Final* Discharge Date/Time: 11/17/18 19:49 Chief Complaint: Mental Health Evaluation ED Provider: Wolfgang Benjamin Discharge Problem: Drug abuse, Pressure ulcer, Ataxia Patient Disposition: Admitted As Inpatient Discharge Instructions Interventions: ED Discharge Assessment Last Done: 11/17/18 19:49 The scribe's documentation has been prepared under my direction and personally reviewed by me in its entirety. I confirm that the note above accurately reflects all work, treatment, procedures, and medical decision making performed by me.
[2018-11-17] MEDS ORDERED: SODIUM CHLORIDE 0.9% 1000ML 1,000 ML IV SCH (14:30)
--- NOTE | 2018-11-17 14:49 | XRay Report ---
XR chest 1V portable CLINICAL HISTORY: medical clearance COMPARISON STUDY: No previous studies for comparison. FINDINGS: The bones soft tissues and hemidiaphragms are normal. The cardiomediastinal silhouette is n ormal. The lungs are clear. The pulmonary vasculature is normal. IMPRESSION: Negative chest. The above report was generated using voice recognition software. It may contain grammatical, syntax or spelling errors. Electronically signed by: Colby Rodriguez M.D. 11/17/2018 2:48 PM
[2018-11-17 15:18] LABS: Eosinophils # (auto) 0.05 K/uL (0-0.5); Eosinophils % (auto) 1.3 %; Hematocrit (blood only) 36.9 % (37-47); Hemoglobin 12.8 g/dL (12.0-16.0); Immature Granulocytes # (auto) 0.01 K/uL (0.00-0.02); Immature Granulocytes % (auto) 0.3 %; Lymphocytes # (auto) 0.85 K/uL (1.2-3.4); Lymphocytes % (auto) 22.1 %; Mean Corpuscular Hgb Conc 34.7 g/dL (32-36); Mean Platelet Volume 9.6 fL (7.4-10.4); Monocytes # (auto) 0.32 K/uL (0.11-0.59); Monocytes % (auto) 8.3 %; Neutrophils # (auto) 2.62 K/uL (1.4-6.5); Platelet Count 150 K/uL (130-400); RDW Coefficient of Variation 16.3 % (11.5-14.5); RDW Standard Deviation 62.8 fL (36.4-46.3); Red Blood Count 3.45 M/uL (4.2-5.4); White Blood Count 3.85 K/uL (4.8-10.8)
[2018-11-17 15:40] LABS: Alanine Aminotransferase 34 U/L (12-78); Albumin Level 3.5 gm/dl (3.4-5.0); Aspartate Aminotransferase 18 U/L (15-37); BUN Creatinine Ratio 22.4 (10-20); Blood Urea Nitrogen 13 mg/dl (7-18); Calcium 9.3 mg/dl (8.5-10.1); Carbon Dioxide 23 mmol/L (21-32); Chloride 108 mmol/L (98-107); Est GFR (African American) > 150.0; Est GFR (Non-African American) 130.1; Glucose 88 mg/dl (70-99); Magnesium 2.3 mg/dl (1.8-2.4); Potassium 3.6 mmol/L (3.5-5.1); Sodium 137 mmol/L (136-145)
[2018-11-17 15:44] LABS: Salicylate < 1.7 mg/dl (2.8-20)
[2018-11-17 15:45] LABS: Acetaminophen < 2 ug/ml (10-30)
[2018-11-17 15:49] LABS: Pregnancy Test, Serum Negative (Negative)
[2018-11-17 15:51] LABS: Albumin Globulin Ratio 0.7 (0.9-2); Alkaline Phosphatase 106 U/L (45-117); Bilirubin,Total 0.6 mg/dl (0.2-1); Creatine Kinase 467 U/L (26-192); Globulin 4.8 gm/dl (2.5-4.0); Total Protein 8.3 gm/dl (6.4-8.2); Troponin I < 0.015 ng/ml (0-0.045)
[2018-11-17] MEDS ORDERED: SODIUM CHLORIDE 0.9% 1000ML 1,000 ML IV ONE (18:23)
[2018-11-17] MEDS ORDERED: CYANOCOBALAMIN 30 MCG in SYRINGE 0.97 ML IM SCH (18:30)
[2018-11-17 18:40] LABS: Appearance Urine Clear (Clear); Bacteria Urine Automated 1+ (Negative); Bilirubin Urine Negative (Negative); Color Urine Yellow; Epithelial Cell Urine Auto 20-30 /lpf (0-5); Glucose Urine UA Negative (Negative); Ketones Urine Negative (Negative); Leukocyte Esterase Urine Trace (Negative); Nitrite Urine Positive (Negative); Protein Urine Negative (Negative); Specific Gravity Urine 1.012 (1.000-1.030); Urobilinogen Urine Negative (Negative)
[2018-11-17] MEDS ORDERED: CYANOCOBALAMIN 1000 MCG/ML VIAL IM ONE (19:00)
[2018-11-17 19:07] LABS: Amphetamines+Metham, Urine Neg (Neg); Barbiturates, Urine Neg (Neg); Benzodiazepine, Urine Neg (Neg); Cocaine, Urine Neg (Neg); MDMA (Ecstacy), Urine Neg (Neg); Methadone, Urine Neg (Neg); Opiate, Urine Neg (Neg); Phencyclidine, Urine Neg (Neg)
--- NOTE | 2018-11-17 19:07 | History & Physical Report ---
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 There is also concerned about her open skin areas on her hip and perineal area. 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 B12 deficiency we will give her intramuscular 1000 mcg of B12 daily for 7 days and then can switch to oral B12 (4) DVT prophylaxis: lovenox will be used for DVT prevention History of Present Illness Primary Care Provider: [facility] Patient was transferred to the ER after she failed to come to the door for delivery of food police entered her apartment found her and unable to walk and and covered in human waste she is brought to the ER considered for mental health evaluation but she is unable to walk without max assist due to her 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 Other No family history of disorders Social History Feels Safe at Home: Yes Smoking Status: Never smoker Review of Systems Unobtainable due to cognitive status Physical Exam 2 Vital Signs (Past 24 Hours): Last Vital Signs Temp 36.5 C 11/17/18 14:36 Pulse 74 11/17/18 15:52 Resp 18 11/17/18 15:52 BP 107/57 L 11/17/18 15:52 Pulse Ox 98 11/17/18 15:52 The patient appeared Ms. Prince disheveled and confused at times Vital signs as documented. Head exam is unremarkable. Oropharynx has irritated skin to the edges of her tongue and erythematous pharynx without exudates Neck is without jugular venous distension, thyromegaly, or lymphademopathy Lungs are clear to auscultation and percussion. Cardiac exam reveals Rhythm is regular. First and second heart sounds normal. No murmurs Abdominal exam reveals normal bowel sounds, no masses, no organomegaly Extremities are with open areas on her left hand specifically the third and fourth fingers she has also excoriated areas on her pain her briseida-area and a constellation of open small sores on her right hip which may be healing excoriated areas. Neurologic exam is A&Ox x2 she is bewildered at times repeating phrases when asked to her she is dysmetric with her hands her lower extremities are weak she cannot bear weight she claims to have decreased sensation distally to her feet but not her hands there is callus formation in her hands also consistent with probably excess scratching or picking Skin is warm Dry he has hyperpigmentation is consistent with a B12 deficiency
[2018-11-17] MEDS ORDERED: PATIENT'S HEIGHT AND/OR WEIGHT NEEDED SCH (21:30)
[2018-11-17] MEDS: SODIUM CHLORIDE 0.9% 1000ML 1,000 ML IV SCH (21:57)
[2018-11-17] MEDS: CHLORHEXIDINE GLUCONATE 0.12% 480 ML MT SCH (22:56)
[2018-11-18] MEDS ORDERED: INFLUENZA ADMINISTRATION CHARGE ONE (05:15)
[2018-11-18] MEDS ORDERED: INFLUENZA VIRUS QUAD VACCINE 0.5 ML SYR IM ONE (05:15)
[2018-11-18] MEDS: SODIUM CHLORIDE 0.9% 1000ML 1,000 ML IV SCH ×3 (06:01→22:28)
[2018-11-18] MEDS: CYANOCOBALAMIN 500 MCG TABLET (VITAMIN B-12) PO SCH (08:35)
[2018-11-18] MEDS: CHLORHEXIDINE GLUCONATE 0.12% 480 ML MT SCH ×3 (08:35→21:21)
[2018-11-18] MEDS: CYANOCOBALAMIN 1000 MCG/ML VIAL IM SCH (08:38)
[2018-11-18] MEDS: ENOXAPARIN INJ 40 MG/0.4 ML SYR SQ SCH (08:38)
[2018-11-18 10:09] LABS: Partial Thromboplastin Ratio 1.2; Partial Thromboplastin Time 30.8 Seconds (21.0-31.0); Prothrombin Time 9.8 Seconds (9.0-12.0)
--- NOTE | 2018-11-18 12:07 | Family Medicine Progress Note ---
Date of Service November 18, 2018 Assessment & Plan (1) Drug abuse: Pt was brought to the police after failing to open door for food delivery. Was found in her apt unable to walk and and covered in human waste. Was brought to the ER and considered for mental health evaluation but was unable to walk without max assist. 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 Was also found to have open skin areas on her hip and perineal area. (1)Nitrous oxide - Huffing: -Used up to 100 nitrous a day the last 5 days and same amount every couple of days prior to day for unknown period of time (2) Functional quadriplegia: likely secondary to long tract neuropathy vs. anoxic brain injury 2/2 nitrous oxide abuse Patient is unable to move without max assist or provide any self-care -B12 level >2000 -normal neurologic assessment -MRI brain no acute findings; questionable signal abnormality within the posterior columns of the upper cervical spinal cord possibility of subacute combined degeneration -above finding expected given B12 deficiency hx and use of nitrous oxide; no further imaging needed at this time -will likely improve with time once stops using nitrous oxide (3) B12 deficiency: Hx of B12 from nitrous oxide abuse -On oral B12 and 1000mcg IV daily (4) DVT prophylaxis: lovenox FEN/GI: regular diet, replete electrolytes as needed Code: full Dispo: pending clinical improvement (2) DVT prophylaxis: (3) B12 deficiency: (4) Huffing: Supervising Physician Co-Signing Physician Notes I personally examined the patient and verified all souza points of history and exam, discussed case, and agree with decision making with Dr Joseph. Weakness, MRI brain was pending at the time I saw her. Vitals noted, in general she is sitting in the chair in no acute distress. HEENT normal cephalic atraumatic mucous membranes are moist. Lungs are unlabored no accessory muscle use. Skin shows no rashes no pallor or icterus. Weakness/ataxia/gait instabilityawaiting MRI brain to look for any evidence of any anoxic brain injury from her huffing. More than likely her excessive use of whippets, while not causing a khadijah B12 deficiency at this point in time, is likely making her unable to actually use the B12 that she has. We will need to review the literature for her if there is anything we can do to hasten her recovery (such as flooding her with excessive B12 to saturate her system?) or if simply time removed from the offending agent given that she has adequate B12 reserves is all that will be needed. Certainly if she shows no improvement or if her clinical situation becomes more questionable a neuro consult for EMG and nerve conduction velocity may be needed, but this point time it would not likely have much yield in terms of changing her clinical picture. If her MRI is negative we will send methylmalonic acid level to confirm our suspicion of problems with B12 metabolism. Continued educated extensively on the danger of her current habit, as well as an work on her psychiatric picture from both an addiction and possibly depression standpoint. PT/OT eval and treat, right now it appears she is very likely to need rehab Otherwise as above Subjective This AM pt reports feeling fine this AM Reports using 100 whip-its for the past 5 days. Before she was using 100 every couple of days. Started having numbness in her legs to about her upper thigh level starting 5 days ago as well. Denies any numbness/tingling in her hands. Reports falling asleep after use and being unconsious which has happened before after using whip-its as well. Denies any head trauma. Has been peeling her skin on her hands but is not sure how she ended up with open skin (peeled like) areas on her R hip. 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 She does have family and friends in the region. Denies any LAGUNA/dizziness, sob, cp, n/v, abdominal pain, dysuria, pain in her arms or legs Physical Exam 2 Vital Signs (Past 24 Hours): Last Vital Signs Temp 36.9 C 11/18/18 07:22 Pulse 88 11/18/18 07:22 Resp 18 11/18/18 07:22 BP 102/63 11/18/18 07:22 Pulse Ox 97 11/18/18 07:22 Physical Exam: General: In NAD, notably poor hygiene Neuro: CN 2-12 intact, strength 5/5 bilateral upper and lower extremities, sensation intact, normal finger-nose- finger testing, PERRLA, EOMI, DTR intact R knee, difficult to obtain on L knee CV: RRR, no m/r/g Pulm: CTAB, equal breath sounds bilaterally Abdomen: +BS, NTTP in all quadrants, non-distended LE: no LE pitting edema, no calf tenderness to palpation Psych: flat affect, anxious appearing, speech appropriate Results & Data Laboratory Results Abnormal lab results 11/17/18 11/17/18 11/17/18 Range/Units 15:05 15:05 15:05 WBC 3.85 L (4.8-10.8) K/uL RBC 3.45 L (4.2-5.4) M/uL Hct 36.9 L (37-47) % MCV 107.0 H (80-100) fL MCH 37.1 H (25-34) pg RDW Std Deviation 62.8 H (36.4-46.3) fL RDW Coeff of Lori 16.3 H (11.5-14.5) % Lymph # (Auto) 0.85 L (1.2-3.4) K/uL Chloride 108 H (98-107) mmol/L Creatinine 0.59 L (0.6-1.2) mg/dl BUN/Creatinine Ratio 22.4 H (10-20) Total Creatine Kinase 467 H (26-192) U/L Total Protein 8.3 H (6.4-8.2) gm/dl Globulin 4.8 H (2.5-4.0) gm/dl Albumin/Globulin Ratio 0.7 L (0.9-2) Vitamin B12 (211-911) pg/ml Urine Nitrite (Negative) Ur Leukocyte Esterase (Negative) U Epithel Cells (Auto) (0-5) /lpf Urine Bacteria (Auto) (Negative) Salicylates < 1.7 L (2.8-20) mg/dl Acetaminophen < 2 L (10-30) ug/ml 11/17/18 11/17/18 Range/Units 18:00 19:24 WBC (4.8-10.8) K/uL RBC (4.2-5.4) M/uL Hct (37-47) % MCV (80-100) fL MCH (25-34) pg RDW Std Deviation (36.4-46.3) fL RDW Coeff of Lori (11.5-14.5) % Lymph # (Auto) (1.2-3.4) K/uL Chloride (98-107) mmol/L Creatinine (0.6-1.2) mg/dl BUN/Creatinine Ratio (10-20) Total Creatine Kinase (26-192) U/L Total Protein (6.4-8.2) gm/dl Globulin (2.5-4.0) gm/dl Albumin/Globulin Ratio (0.9-2) Vitamin B12 > 2000 H (211-911) pg/ml Urine Nitrite Positive H (Negative) Ur Leukocyte Esterase Trace H (Negative) U Epithel Cells (Auto) 20-30 H (0-5) /lpf Urine Bacteria (Auto) 1+ H (Negative) Salicylates (2.8-20) mg/dl Acetaminophen (10-30) ug/ml Diagnostic Findings Brain MRI WITHOUT CONTRAST HISTORY: ataxia, chronic nitrous abuse -?anoxic injury TECHNIQUE: Multiplanar multisequence MRI of the brain was performed without the use of contrast. COMPARISON STUDY: None. FINDINGS: There are no areas of restricted diffusion to suggest acute infarction. The midline structures are intact. The paranasal sinuses are clear. The mastoid air cells are clear. The ventricles and sulci are within normal limits for age. There is no mass, hematoma, midline shift. The major vascular flow-voids at the skull base are well maintained. Questionable signal abnormality within the posterior columns of the upper cervical spinal cord. However, this is only partially visualized on this study. IMPRESSION: 1. No acute intracranial abnormality. 2. Questionable signal abnormality within the posterior columns of the upper cervical spinal cord. However, this is only partially visualized on this study. Therefore, dedicated cervical spine MRI is recommended to exclude the possibility of subacute combined degeneration. XR chest 1V portable CLINICAL HISTORY: medical clearance COMPARISON STUDY: No previous studies for comparison. FINDINGS: The bones soft tissues and hemidiaphragms are normal. The cardiomediastinal silhouette is normal. The lungs are clear. The pulmonary vasculature is normal. IMPRESSION: Negative chest. Medications Administered Current Inpatient Medications Chlorhexidine Gluconate (Peridex) 15 ml MT TID JOSE Stop: 12/17/18 21:17 Last Admin: 11/18/18 08:35 Dose: 15 ml Cyanocobalamin (Vitamin B-12) 1,000 mcg PO QAM JOSE Stop: 12/18/18 08:59 Last Admin: 11/18/18 08:35 Dose: 1,000 mcg Cyanocobalamin (Vitamin B-12) 1,000 mcg IM DAILY JOSE Stop: 11/23/18 08:59 Last Admin: 11/18/18 08:38 Dose: 1,000 mcg Enoxaparin Sodium (Lovenox) 40 mg SQ QAM [facility]SE Stop: 12/18/18 08:59 Last Admin: 11/18/18 08:38 Dose: 40 mg Sodium Chloride (Nss 1000ml) 1,000 mls @ 125 mls/hr IV .Q8H [facility] Stop: 12/17/18 21:29 Last Admin: 11/18/18 06:01 Dose: 125 mls/hr Resident Activity Tracking Resident Involvement: Resident Care Provided Care Provided: Adult Hospital Medicine
--- NOTE | 2018-11-18 15:46 | Magnetic Resonance Report ---
Brain MRI WITHOUT CONTRAST HISTORY: ataxia, chronic nitrous abuse -?anoxic injury TECHNIQUE: Multiplanar multisequence MRI of the brain was performed without the use of contrast. COMPARISON STUDY: None. FINDINGS: There are no areas of restricted diffusion to suggest acute infarction. The midline structu res are intact. The paranasal sinuses are clear. The mastoid air cells are clear. The ventricles and sulci are within normal limits for age. There is no mass, hematoma, midline shift. The major vascular flow-voids at the skull base are well maintained. Questionable signal abnormality within the posteri or columns of the upper cervical spinal cord. However, this is only partially visualized on this stud y. IMPRESSION: 1. No acute intracranial abnormality. 2. Questionable signal abnormality within the posterior columns of the upper cervical spinal cord. Ho wever, this is only partially visualized on this study. Therefore, dedicated cervical spine MRI is re commended to exclude the possibility of subacute combined degeneration. Electronically signed by: Jame Hernandez M.D. 11/18/2018 3:45 PM
[2018-11-18] MEDS ORDERED: CYANOCOBALAMIN 1000 MCG/ML VIAL IM SCH (21:00)
[2018-11-19] MEDS: SODIUM CHLORIDE 0.9% 1000ML 1,000 ML IV SCH (06:22)
[2018-11-19 07:54] LABS: Hematocrit (blood only) 35.9 % (37-47); Hemoglobin 12.1 g/dL (12.0-16.0); Mean Corpuscular Hgb Conc 33.7 g/dL (32-36); Mean Corpuscular Volume 108.8 fL (80-100); Mean Platelet Volume 10.5 fL (7.4-10.4); Platelet Count 180 K/uL (130-400); RDW Coefficient of Variation 15.7 % (11.5-14.5); RDW Standard Deviation 61.7 fL (36.4-46.3); White Blood Count 3.48 K/uL (4.8-10.8)
[2018-11-19] MEDS: CHLORHEXIDINE GLUCONATE 0.12% 480 ML MT SCH ×3 (08:37→19:49)
[2018-11-19] MEDS: CYANOCOBALAMIN 500 MCG TABLET (VITAMIN B-12) PO SCH (08:37)
[2018-11-19] MEDS: ENOXAPARIN INJ 40 MG/0.4 ML SYR SQ SCH (08:38)
[2018-11-19] MEDS: CYANOCOBALAMIN 1000 MCG/ML VIAL IM SCH (08:38)
[2018-11-19 09:03] LABS: BUN Creatinine Ratio 26.2 (10-20); Blood Urea Nitrogen 15 mg/dl (7-18); Calcium 9.1 mg/dl (8.5-10.1); Carbon Dioxide 22 mmol/L (21-32); Chloride 110 mmol/L (98-107); Creatinine Clr Calc Pharmacy 141.8 ml/min; Est GFR (African American) > 150.0; Est GFR (Non-African American) 132.4; Glucose 89 mg/dl (70-99); Potassium 3.9 mmol/L (3.5-5.1); Sodium 138 mmol/L (136-145)
[2018-11-19 09:10] LABS: Creatine Kinase 159 U/L (26-192)
--- NOTE | 2018-11-19 10:28 | Family Medicine Progress Note ---
Date of Service November 19, 2018 Assessment & Plan (1) Drug abuse: Pt was brought to the police after failing to open door for food delivery. Was found in her apt unable to walk and and covered in human waste. Was brought to the ER and considered for mental health evaluation but was unable to walk without max assist. 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 Was also found to have open skin areas on her hip and perineal area. 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 Patient initially unable to move without max assist or provide any self- care --> improving, able to stand on her own and walk with support -B12 level >2000 -normal neurologic assessment -MRI brain no acute findings; questionable signal abnormality within the posterior columns of the upper cervical spinal cord possibility of subacute combined degeneration -above finding expected given B12 deficiency hx and use of nitrous oxide which inactivates B12 even if present limiting processes to use it; no further imaging needed at this time -will likely improve gradually now that she has stopped using nitrous oxide (3) B12 deficiency: Hx of B12 defiency from nitrous oxide abuse -B12 level >2000 -On oral B12 and 1000mcg IV daily (4) DVT prophylaxis: lovenox FEN/GI: regular diet, replete electrolytes as needed Code: full Dispo: pending clinical improvement (2) DVT prophylaxis: (3) B12 deficiency: (4) Huffing: Subjective This AM pt reports feeling a little better and being able to stand on her feet and walk to bed by objects in her way. Reports impaired concentration, poor appetite, insomina (often wakes up in the middle of the night and cannot go back to sleep). Denies feeling sad or down in the past 2 weeks. Has not lost interest in activities she used to enjoy such as playing video games with friends (real life and virtual) Denies wanting to harm herself or wish not existing anymore. Denies homicidal ideations or attempt. Denies hx of any previous pyschiatric condition such as depression, anxiety, or bipolar or ever being treated for any psychiatric condition. Reports losing control and going back to using nitrous oxide after quiting back in december of 2017. She also reports picking her skin because she cannot control herself from picking peeling/loose skin. Pt has told family of nitrous oxide use and sister is coming from [place] to visit her tomorrow. She is also planning on going back to [place] at the end of the month. Denies any LAGUNA/dizziness, sob, cp, n/v, abdominal pain, dysuria, pain in her arms or legs Physical Exam 2 Vital Signs (Past 24 Hours): Last Vital Signs Temp 36.9 C 11/19/18 07:21 Pulse 96 H 11/19/18 08:34 Resp 16 11/19/18 08:34 BP 114/74 11/19/18 08:34 Pulse Ox 99 11/19/18 08:34 Physical Exam: General: In NAD, notably poor hygiene CV: RRR, no m/r/g Pulm: CTAB, equal breath sounds bilaterally Abdomen: +BS, NTTP in all quadrants, non-distended LE: no LE pitting edema, no calf tenderness to palpation Skin: superficial skin sloughing noted on bilateral hips (likely pressure ulcers which pt has picked on); bilateral hands: peeling and callous noted Psych: flat affect, anxious appearing, speech appropriate Results & Data Laboratory Results Abnormal lab results 11/19/18 11/19/18 Range/Units 07:16 07:16 WBC 3.48 L (4.8-10.8) K/uL RBC 3.30 L (4.2-5.4) M/uL Hct 35.9 L (37-47) % MCV 108.8 H (80-100) fL MCH 36.7 H (25-34) pg RDW Std Deviation 61.7 H (36.4-46.3) fL RDW Coeff of Lori 15.7 H (11.5-14.5) % MPV 10.5 H (7.4-10.4) fL Chloride 110 H (98-107) mmol/L Creatinine 0.56 L (0.6-1.2) mg/dl BUN/Creatinine Ratio 26.2 H (10-20) Medications Administered Current Inpatient Medications Chlorhexidine Gluconate (Peridex) 15 ml MT TID JOSE Stop: 12/17/18 21:17 Last Admin: 01/10/19 13:26 Dose: 15 ml Cyanocobalamin (Vitamin B-12) 1,000 mcg PO QAM [facility] Stop: 12/18/18 08:59 Last Admin: 11/19/18 08:37 Dose: 1,000 mcg Cyanocobalamin (Vitamin B-12) 1,000 mcg IM DAILY [facility] Stop: 11/23/18 08:59 Last Admin: 11/19/18 08:38 Dose: 1,000 mcg Enoxaparin Sodium (Lovenox) 40 mg SQ QAM [facility] Stop: 12/18/18 08:59 Last Admin: 11/19/18 08:38 Dose: 40 mg Resident Activity Tracking Resident Involvement: Resident Care Provided Care Provided: Adult Hospital Medicine
[2018-11-20] MEDS: ENOXAPARIN INJ 40 MG/0.4 ML SYR SQ SCH (08:42)
[2018-11-20] MEDS: CHLORHEXIDINE GLUCONATE 0.12% 480 ML MT SCH ×3 (08:43→20:38)
[2018-11-20] MEDS: CYANOCOBALAMIN 500 MCG TABLET (VITAMIN B-12) PO SCH (08:43)
[2018-11-20] MEDS: CYANOCOBALAMIN 1000 MCG/ML VIAL IM SCH (08:44)
--- NOTE | 2018-11-20 16:45 | Family Medicine Progress Note ---
Date of Service November 20, 2018 Assessment & Plan (1) Drug abuse: Pt was brought to the police after failing to open door for food delivery. Was found in her apt unable to walk and and covered in human waste. Was brought to the ER and considered for mental health evaluation but was unable to walk without max assist. 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 Was also found to have open skin areas on her hip and perineal area. 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 nitrous oxide Patient initially unable to move without max assist or provide any self- care --> improving, able to stand on her own and walk with support -B12 level >2000 -normal neurologic assessment -MRI brain no acute findings; questionable signal abnormality within the posterior columns of the upper cervical spinal cord possibility of subacute combined degeneration -above finding expected given B12 deficiency hx and use of nitrous oxide which inactivates B12 even if present limiting processes to use it; no further imaging needed at this time -will likely improve gradually now that she has stopped using nitrous oxide (3) B12 deficiency: Hx of B12 defiency from nitrous oxide abuse -B12 level >2000 -On oral B12 and 1000mcg IV daily (4) DVT prophylaxis: lovenox FEN/GI: regular diet, replete electrolytes as needed Code: full Dispo: per PT/OT needs rehab but pt is uninsured (2) DVT prophylaxis: (3) B12 deficiency: (4) Huffing: Supervising Physician Co-Signing Physician Notes I personally examined the patient and verified all souza points of history and exam, discussed case, and agree with decision making with Dr Joesph. feeling slowly better. sister now at the airport should be here tonight. Vitals noted, in general she is sitting in the chair in no acute distress. HEENT normal cephalic atraumatic mucous membranes are moist. Lungs are unlabored no accessory muscle use. Skin shows no rashes no pallor or icterus. Weakness/ataxia/gait instabilityMRI brain without telling findings, MRI C- spine portion of the brain shows exactly what would be expected for this kind of toxicity. Treatment is predominantly supportive, removal of the nitrous oxide, and time. Continue B12 supplementation, continue PT and OT. appears to have some depression and ?OCD, as well as addictive tendancies - all for outpt f /u. Otherwise as above Subjective This AM pt reports feeling about the same able to stand and walk with assistance. May be a little stronger. Per pt, sister is coming from [place] today to help care for her. Denies any LAGUNA/dizziness, f/c, sob, cp, n/v, abdominal pain, dysuria, pain in her arms or legs Physical Exam 2 Vital Signs (Past 24 Hours): Last Vital Signs Temp 36.6 C 11/20/18 15:07 Pulse 99 H 11/20/18 15:07 Resp 18 11/20/18 15:07 BP 116/69 11/20/18 15:07 Pulse Ox 97 11/20/18 15:07 Physical Exam: General: In NAD CV: RRR, no m/r/g Pulm: CTAB, equal breath sounds bilaterally Abdomen: +BS, NTTP in all quadrants, non-distended LE: no LE pitting edema, no calf tenderness to palpation Skin: superficial skin sloughing noted on bilateral hips (likely 1st degree pressure ulcers from immobility initially which pt has picked on); bilateral hands: peeling and calloused lesions noted Psych: flat affect, anxious appearing, speech appropriate Results & Data Medications Administered Current Inpatient Medications Chlorhexidine Gluconate (Peridex) 15 ml MT TID [facility] Stop: 12/17/18 21:17 Last Admin: 11/20/18 12:48 Dose: 15 ml Cyanocobalamin (Vitamin B-12) 1,000 mcg PO QAM [facility] Stop: 12/18/18 08:59 Last Admin: 11/20/18 08:43 Dose: 1,000 mcg Cyanocobalamin (Vitamin B-12) 1,000 mcg IM DAILY [facility] Stop: 11/23/18 08:59 Last Admin: 11/20/18 08:44 Dose: 1,000 mcg Enoxaparin Sodium (Lovenox) 40 mg SQ QAM [facility] Stop: 12/18/18 08:59 Last Admin: 11/20/18 08:42 Dose: 40 mg Resident Activity Tracking Resident Involvement: Resident Care Provided Care Provided: Adult [facility] Medicine
[2018-11-21] MEDS ORDERED: ACETAMINOPHEN 325 MG TAB PO PRN (09:18)
[2018-11-21] MEDS: CHLORHEXIDINE GLUCONATE 0.12% 480 ML MT SCH (09:19)
[2018-11-21] MEDS: CYANOCOBALAMIN 1000 MCG/ML VIAL IM SCH (09:20)
[2018-11-21] MEDS: CYANOCOBALAMIN 500 MCG TABLET (VITAMIN B-12) PO SCH ×2 (09:20→09:47)
[2018-11-21] MEDS: ENOXAPARIN INJ 40 MG/0.4 ML SYR SQ SCH (09:21)
--- NOTE | 2018-11-21 12:34 | Discharge Summary ---
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 Prince disheveled and confused at times Vital signs as documented. Head exam is unremarkable. Oropharynx has irritated skin to the edges of her tongue and erythematous pharynx without exudates Neck is without jugular venous distension, thyromegaly, or lymphademopathy Lungs are clear to auscultation and percussion. Cardiac exam reveals Rhythm is regular. First and second heart sounds normal. No murmurs Abdominal exam reveals normal bowel sounds, no masses, no organomegaly Extremities are with open areas on her left hand specifically the third and fourth fingers she has also excoriated areas on her pain her briseida-area and a constellation of open small sores on her right hip which may be healing excoriated areas. Neurologic exam is A&Ox x2 she is bewildered at times repeating phrases when asked to her she is dysmetric with her hands her lower extremities are weak she cannot bear weight she claims to have decreased sensation distally to her feet but not her hands there is callus formation in her hands also consistent with probably excess scratching or picking Skin is warm Dry he has hyperpigmentation is consistent with a B12 deficiency Principal Diagnosis Neuropathy with gait dysfunction Discharge Exam General: In NAD CV: RRR, no m/r/g Pulm: CTAB, equal breath sounds bilaterally Abdomen: +BS, NTTP in all quadrants, non-distended LE: no LE pitting edema, no calf tenderness to palpation Skin: superficial skin sloughing noted on bilateral hips (likely 1st degree pressure ulcers from immobility initially which pt has picked on - improved significantly since admission); bilateral hands: peeling and calloused lesions noted Psych: flat affect, anxious appearing, speech appropriate Discharge Data Allergies Allergy/AdvReac Type Severity Reaction Status Date / Time No Known Allergies Allergy Unverified 11/17/18 16:39 Consultations 11/17/18 19:17 ED Decision to Admit Stat 11/17/18 21:18 Consult Case Management - Discharge Planning Routine 11/21/18 10:43 Consult [facility] [employer] Routine Ordered Studies 11/18/18 09:00 MR brain wo con Urgent Hospital Course (1) Drug abuse: Pt was brought to the police after failing to open door for food delivery. Was found in her apt unable to walk and and covered in human waste. Was brought to the ER and considered for mental health evaluation but was unable to walk without max assist. 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 Previous admission in Oct 2017. At the time she also had bone marrow suppresion with pancytopenia and had a bone marrow biopsy. This admission she was huffing 100 nitrous oxide whip-its a day the last 5 days prior to admission and same amount every couple of days prior to that for unknown period of time. She had quit as of december 2017 per PCP note but reports losing control and returning to it. She had bilateral leg numbness and was requiring full assist to walk/move. Per MRI of head, concern for subacute combined degeneration from B12 inactivation by nitrous oxide despite having > 2000 B12 level. She had a normal neurologic exam otherwise. She received B12 1000mcg IM and PO during admission. Was instructed to continue B12 IM 1000mcg weekly x 1 month then once a month indefinitely until her condition improves. Her family (mother and sister) was very supportive and came from [place] to assist her and take her to [place] with them for rehabilitation. She was provided a script for a walker as well. She was advised repeatedly to abstain from using nitrous oxide. She received Lovenox for DVT prophylaxis and PT/OT during her admission. Additionally, her WBC remained borderline low 3.48 likely from persistent bone marrow suppression by nitrous oxide use but her hemoglobin and platelet count were within normal limits. She showed some improvement prior to discharge. (2) DVT prophylaxis: (3) B12 deficiency: (4) Huffing: Total Time Total Time Spent Total Time Spent (In Minutes): 60 minutes Total Time Includes: Examination of the Patient, Discharge Planning, Medication Reconciliation and Communication With Other Providers Discharge Plan Discharge Items Patient Disposition: Home - Self-Care Reason For Visit: [employer] QUADREPELGIA Discharge Diagnosis: Gait dysfunction secondary to neuropathy Condition: Good Discharge Goals: Decrease discomfort, Diagnostic testing and Therapeutic intervention Activity: As commented below Non-emergency contact: Primary Care Provider Call non-emergency contact if: you have any medication questions, your symptoms worsen, your pain is not controlled and your temperature is above 100.5 Diet: Regular Addtl Provider Instructions: Ms. Barahona you were admitted because you could not walk as your legs were numb. You were using nitrous oxide which was inactivating your B12, a vitamin that nourishes and is important for the health of your nerves. Your condition should improve gradually with B12 supplementation and physical therapy/rehabilitation to help you get stronger. You will need to receive B12 shots 1000mcg weekly for one month then once a month after that until your condition improves. Your next shot is due on . A script was provided for this medication. If you stay in [place], we have requested an appointment at [facility] for your B12 shot, you can follow up to schedule that by calling them at [phone] Please continue taking B12 pills by mouth as well, 1000mcg once a day, prescription sent to [facility] pharmacy. Please see your primary care doctor to follow up within a week, Dr. Liza Joseph would be happy to see you at [facility] and an appointment has been requested, If you decide to go to [place], please be sure to continue your B12 shots there and take your oral B12 supplements. You will also need to see a doctor there for follow up and discuss getting stronger with help of physical and occupational therapy. You are being discharged with family support at home. You will need 24/7 supervision and assistance when ambulating and with your activities of daily living to prevent any falls. Prescriptions: New cyanocobalamin (vitamin B-12) 1,000 mcg capsule 1,000 mcg PO DAILY Qty: 30 RF: 0 Continue cyanocobalamin (vitamin B-12) [Vitamin B-12] 1,000 mcg Tablet 1,000 mcg PO QAM RF: 0 Stand-Alone Forms: [facility] Discharge Orders: Discharge Order (Routine); Ordered 11/21/18 Ordered By: Liza Joseph Admission Data Admit Date/Time: 11/17/18 19:10 Attending Provider: Jez Fatima Admit Provider: Stewart Perez Primary Care Provider: [facility] Other Providers: Stewart Perez Service: Medical Other Interventions: Discharge Summary Assessment (RN) Last Done: 11/21/18 11:51 Pending Studies at Discharge: No Resident Activity Tracking Resident Involvement: Resident Care Provided Care Provided: Adult Hospital Medicine
== END 2018-11-21 13:27 | disposition home or self-care (01) ==
LOC: ED 14:10 → 4W 14:10 → SUATTDRO 19:10 → 4W 19:49